=== PATIENT | male | born 1955 | race Caucasian/White ===

== ENCOUNTER 2018-05-18 13:38 | Outpatient (CLI) | payer OTHER ==
--- NOTE | 2018-05-18 16:02 | MRI ---
MRI RIGHT SHOULDER WITHOUT CONTRAST 05/18/18 HISTORY: M75.101 - rotator cuff syndrome, right shoulder. COMPARISON: BICEPS TENDON: Intact. LABRUM: Mild free edge volume loss of the posterior labrum. CARTILAGE: No focal full thickness cartilage defect. ROTATOR CUFF: There is moderate bursal surface fraying of the supraspinatus tendon. No full thickness perforation. BONES: There is mild lateral downsloping of the acromion with a thickened keel osteophyte of the coracoacrom ial ligament narrowing subacromial space. Subacromial space narrowed to approximately 4 mm. SOFT TISSUES: Normal subcoracoid fat. No significant edema or rotator interval. MUSCLES: Muscle signal and bulk is normal. IMPRESSION: Lateral downsloping of the acromion with thickened coracoacromial ligament causing bursal surface fr aying of the supraspinatus tendon with mild subacromial subdeltoid bursal effusion. No full thickness perforation. POS: [facility]
== END 2018-05-18 13:39 | disposition home or self-care (01) ==
LOC: MRI 13:38
PROVIDERS: ATTEND Emergency Medicine Sports Medicine
DX: M75.101 Unspecified rotator cuff tear or rupture of right shoulder, not specified as traumatic (principal); M25.411 Effusion, right shoulder

== ENCOUNTER 2020-04-10 06:46 | Inpatient (IN) | payer OTHER ==
[2020-04-10] MEDS ORDERED: Midazolam HCl 5 mg/ml Vial ONE (06:52)
[2020-04-10 07:13] LABS: PTT 38.2 sec (22.9-36.1)
[2020-04-10 07:20] LABS: Prothrombin Time 13.5 sec (12.0-14.7)
[2020-04-10 07:22] LABS: #Lymphocytes 0.4 thou/uL (1.20-3.40); #Monocytes 0.7 thou/uL (0.11-0.59); #Neutrophils 7.8 thou/uL (1.40-6.50); %Basophils 0.1 % (0.0-1.0); %Eosinophils 0.1 % (0.0-10.0); %Lymphocytes 4.2 % (21.0-51.0); %Monocytes 7.7 % (0.0-10.0); %Neutrophils 87.9 % (42.0-75.0); ALT (SGPT) 49 U/L (8-55); AST (SGOT) 46 U/L (5-34); Alkaline Phosphatase 94 U/L (40-110); Anion Gap 17 mmol/L (10-20); BUN (Urea Nitrogen) 6 mg/dL (8.4-25.7); Bilirubin, Total 0.5 mg/dL (0.2-1.2); CK (CPK) 81 U/L (30-200); Calc. Creatinine Clearance 0 mL/min (70-130); Calcium 8.7 mg/dL (7.8-10.44); Carbon Dioxide 19 mmol/L (23-31); Chloride 94 mmol/L (98-107); Estimated GFR-MDRD Greater than 90; Globulin 2.6 g/dL (2.4-3.5); Glucose 159 mg/dL (80-115); Hemoglobin 12.8 g/dL (14.0-18.0); Mean Corpuscular HGB CONC 35.7 g/dL (32.0-36.0); Mean Corpuscular Hemoglobin 35.5 pg (27.0-31.0); Mean Corpuscular Volume 99.4 fL (78.0-98.0); Platelet Count 107 thou/uL (130-400); Potassium 3.8 mmol/L (3.5-5.1); Protein, Total 6.6 g/dL (5.8-8.1); RBC Distribution Width 11.2 % (11.5-14.5); Red Blood Cell (RBC) Count 3.61 mill/uL (4.70-6.10); Sodium 126 mmol/L (136-145); White Blood Cell (WBC) Count 8.9 thou/uL (4.8-10.8)
[2020-04-10 07:24] LABS: Platelet Morphology Comment Appears Decreased
[2020-04-10] MEDS ORDERED: Lorazepam 2 MG/ML VIAL ONE (07:30)
[2020-04-10] MEDS ORDERED: Propofol 1,000 MG/100 ML VIAL IV ONE ×2 (07:30→10:42)
[2020-04-10 07:34] LABS: Actual Bicarbonate (HCO3a) 18.7 mEq/L (22-28); Analyzer IN Cardio ER; Base Excess (BEa) -4.8 mEq/L (-2.0 to +3.0); CO2 Tension 30.1 mmHg (35.0-45.0); Calcium, Ionized (arterial) 1.11 mmol/L (1.12-1.30); Carboxyhemoglobin (COHb) 0.3 gm% (0.0-3.0); Hemoglobin (Hb) 12.9 g/dL (14.0-18.0); O2 Tension (PaO2), arterial 117.6 mmHg (> 80.0); Potassium - ABG Lab 3.55 mmol/L (3.70-5.30); pH, Arterial 7.41 (7.35-7.45)
[2020-04-10 07:34] LABS: Alcohol Less than 10 mg/dL (Less than 10); Salicylate Less than 8.0 mg/dL (15.0-30.0)
[2020-04-10 07:35] LABS: ALV-art Gradient 129.975 (0-20)
--- NOTE | 2020-04-10 07:43 | RAD ---
EXAM: Single view of the chest HISTORY: Altered mental status COMPARISON: 08/28/2017 FINDINGS: Single view of the chest shows a normal sized cardiomediastinal silhouette. An NG tube is seen with its tip in the stomach. There is no evidence of consolidation, mass, or pleural effusion. The bones are unremarkable. IMPRESSION: No evidence of acute cardiopulmonary disease
--- NOTE | 2020-04-10 07:47 | CT ---
CT OF THE BRAIN WITHOUT CONTRAST: INDICATION: Level I stroke last evening at 0400 hours now unresponsive with snoring, respirations, and fever. COMPARISON: Noncontrast CT of the brain dated 08/29/2017 from [facility]. FINDINGS: There is generalized cerebral and cerebellar atrophy. There is mild chronic small-vessel white matte r ischemic change. No definite acute infarct, hemorrhage, or hydrocephalus is present. There are va scular calcifications involving the major intracranial arteries. There is mucosal thickening in the ethmoid air cells. The patient is intubated. The skull is intact. IMPRESSION: 1. No acute intracranial abnormality. 2. Stable generalized cerebral atrophy. 3. Findings called to Dr. Walker at 7:04 a.m. on 04/08/2020. CODE CR POS: [facility]
[2020-04-10 07:55] LABS: Bilirubin Negative (Negative); Blood, Urine Negative (Negative); Clarity Clear (Clear); Glucose, Urine (Dipstick) 100 mg/dL (Negative); Leukocyte Negative Leu/uL (Negative); Nitrite Negative (Negative); Protein, Urine (Dipstick) 10 mg/dL (Neg-Trace); Urobilinogen Normal mg/dL (Less than 2)
[2020-04-10] MEDS ORDERED: Fentanyl 100 MCG/2 ML VIAL ONE (07:55)
[2020-04-10 08:09] LABS: Amphetamine Not Detected (NotDetected); Barbiturates Screen Not Detected (NotDetected); Benzodiazepine Screen Not Detected (NotDetected); Cocaine Metabolite Screen Not Detected (NotDetected); Medtox Control Line Valid? VALID (VALID); Medtox Reader # READER 4; Methadone Not Detected (NotDetected); Methamphetamine Not Detected (NotDetected); Opiate Screen Not Detected (NotDetected); Oxycodone Screen Not Detected (NotDetected); Phencyclidine (PCP) Not Detected (NotDetected); THC/Cannabinoid Screen Not Detected (NotDetected); Tricyclic Screen Not Detected (NotDetected)
[2020-04-10] MEDS ORDERED: fentaNYL Citrate/PF 2,000 MCG in Sodium Chloride 0.9% 60 ML IV SCH (08:10)
[2020-04-10] MEDS ORDERED: Propofol 1,000 MG/100 ML VIAL IV PRN (08:25)
[2020-04-10] MEDS ORDERED: Thiamine HCl 200 MG/2 ML VIAL SLOW IVP SCH (08:30)
[2020-04-10] MEDS ORDERED: cefTRIAXone\\ROCEPHIN 2 GM in Sodium Chloride 0.9% 100 ML IVPB SCH (08:30)
--- NOTE | 2020-04-10 08:57 | CT ---
CTA OF THE HEAD WITH IV CONTRAST AND 3D REFORMATTED IMAGING CTA OF THE NECK WITH IV CONTRAST AND 3D REFORMATTED IMAGING: INDICATION: History of level I stroke with unresponsiveness with snoring respirations and fever. COMPARISON: Noncontrast CT of the brain dated 04/10/2020 at 6:55 a.m. FINDINGS: CTA OF THE NECK: Lung apices are clear. The patient is intubated. A mild amount of fluid is seen within the lower hy popharynx. The submandibular and parotid glands appear within normal limits. Thyroid gland is hillary l appearing. No enlarged lymph nodes are evident. There is scattered degenerative and osteoarthritic change. No definite acute osseous abnormality is evident. There is partial ankylosis of the left C2-C3 facet complex. No hemodynamically significant stenosis is seen involving the visualized aspects of the common caroti d arteries. The internal carotid arteries are patent. There are vascular calcifications involving t he carotid bulbs bilaterally. The vertebral arteries are patent throughout their visualized cervical course. CTA OF THE HEAD: There is a calcified atherosclerotic plaque involving the proximal aspect of the intracranial right v ertebral artery inducing hemodynamically significant stenosis. The left intracranial vertebral arter y is widely patent. The basilar and bandage maker are widely patent. Posterior communicating arteries are wi janey patent. The right internal carotid artery was widely patent. The right MCA and right CHANO are p atent. The anterior communicating artery is patent. The left ICA, left MCA, and left CHANO are widely patent. No area of abnormal enhancement is grossly evident. IMPRESSION: 1. No acute hemodynamically significant stenosis is seen involving the large vessels of the intracra nial artery. There is a calcified atherosclerotic plaque inducing high-grade stenosis of the proxima l aspect of the right intracranial vertebral artery that is likely chronic. 2. No hemodynamically significant stenosis is seen involving the great vessels of the neck. POS: [facility]
[2020-04-10] MEDS ORDERED: cefTRIAXone\\ROCEPHIN 2 GM VIAL ONE (08:58)
--- NOTE | 2020-04-10 09:22 | RAD ---
EXAM: Single view of the lumbar spine HISTORY: Performing a lumbar puncture. Evaluate for hardware. COMPARISON: None FINDINGS: Mild degenerative changes are seen in the lumbar spine. These degenerative changes are more prominent inferiorly. No hardware is seen in the lumbar spine. There is moderate left hydronephrosis. An NG tube is seen in the stomach. IMPRESSION: Degenerative changes of the lumbar spine without hardware present.
[2020-04-10] MEDS ORDERED: Acetaminophen 325 MG TAB PO PRN (09:24)
[2020-04-10] MEDS ORDERED: Bisacodyl 10 MG SUPP PR PRN (09:24)
[2020-04-10] MEDS ORDERED: Senokot S 8.6-50 MG TAB PO PRN (09:24)
[2020-04-10] MEDS ORDERED: Acetaminophen 650 MG Suppository PR PRN (09:24)
[2020-04-10] MEDS ORDERED: Dicyclomine 10 MG CAP PO PRN (09:26)
[2020-04-10] MEDS ORDERED: Iopamidol-370 76% 500 ML 1 ML ONE (09:27)
[2020-04-10 10:39] LABS: Troponin I 0.054 ng/mL (< 0.028)
[2020-04-10] MEDS ORDERED: Propofol BOLUS 1,000 MG/100 ML VIAL IV PRN (10:41)
[2020-04-10] MEDS ORDERED: Fentanyl BOLUS 250 ML IVPB PRN (10:41)
[2020-04-10] MEDS ORDERED: Morphine 2 MG/ML SYRINGE SLOW IVP PRN (10:41)
[2020-04-10] MEDS ORDERED: DISCONTINUE PREVIOUS NARCOTIC PAIN MEDICATIONS AND BENZODIAZEPINES FS SCH (10:41)
[2020-04-10] MEDS ORDERED: Lorazepam 2 MG/ML VIAL SLOW IVP PRN (10:41)
[2020-04-10] MEDS ORDERED: PROPOFOL 0 ML ONE (10:42)
[2020-04-10] MEDS ORDERED: hydrALAZINE 20 MG/ML VIAL SLOW IVP PRN (13:16)
[2020-04-10 13:44] LABS: Troponin I 0.055 ng/mL (< 0.028)
--- NOTE | 2020-04-10 13:49 | CON ---
NEUROLOGY CONSULTATION DATE OF CONSULTATION: 04/10/2020 HISTORY OF PRESENT ILLNESS: Mr. Vanessa Bradley is a 64-year-old male with history significant for hypertension, hypercholesterolemia, irritable bowel syndrome, brought by the EMS this morning because of seizures. The patient is unable to provide the history. The history is taken from the review of the medical records. Around 4 a.m., the patient went to the bathroom, and around 5:30 p.m. , the found him unresponsive on the floor, there was a concern about seizure activity, but nobody has witnessed the seizure. did notice generalized shaking. The EMS arrived and he was still unresponsive, so they intubated him to protect his airway and brought him to the hospital for further management. There is no family history of seizures. REVIEW OF SYSTEMS: Unobtainable since the patient is intubated and sedated. PAST MEDICAL HISTORY: Hypercholesterolemia, hypertension. SOCIAL HISTORY: . Lives with his . ALLERGIES: NO KNOWN DRUG ALLERGIES. FAMILY HISTORY: NOt significant. CURRENT MEDICATIONS: None. PHYSICAL EXAMINATION: VITAL SIGNS: Blood pressure 120/60, pulse 80 HEENT: Normocephalic, atraumatic. GENERAL: Intubated and sedated male, in no acute distress. CVS: Regular rate and rhythm. CHEST: Clear. ABDOMEN: Soft. NEUROLOGIC: Mental status; the patient is sedated and intubated. Does not follow commands. Does not maintain eye contact. Cranial nerves; pupils 4 mm, round and reactive to light. Face symmetric. Tongue midline. Gag positive. Corneals positive. Motor; muscle tone and bulk are normal. No spontaneous movements of all 4 extremities seen. Sensory; minimal withdrawal of all 4 extremities to nailbed pressure. Reflexes; trace bilaterally. Babinski equivocal bilaterally. Cerebellar; did not cooperate with the testing because of the sedation. Gait deferred. MEDICATIONS: Diprivan, ceftriaxone, fentanyl, lorazepam, and midazolam. DIAGNOSTIC STUDIES: Data reviewed. I reviewed the CT scan of the brain, which was negative for acute intracranial process, stable generalized cerebral atrophy. I also reviewed the CT angiogram of the head and neck, which did not reveal any acute hemodynamically significant stenosis. ASSESSMENT AND PLAN: Mr. Vanessa Bradley was consulted because of altered mental status with a concern about seizure activity, but no witnessed seizure was seen according to the records. Recommend MRI of the brain to rule out an acute intracranial process. Recommend EEG to rule out underlying seizure activity. The patient is a COVID rule out, so we will hold off the testing until the screening is complete. Neuro checks every 2 hours. Consider loading with Keppra 2 g IV and starting on 500 mg IV q.12 until the acute issues are resolved. Continue medical management per Primary Team. Observe seizure precautions. We will continue to follow. Thank you for the consult. Job ID: [id number] MTDD
--- NOTE | 2020-04-10 13:53 | HP ---
CHIEF COMPLAINT: Altered mentation. HISTORY OF PRESENT ILLNESS: A 64-year-old male with a history of alcohol abuse, irritable bowel syndrome, hyperlipidemia, hypertension, presented with questionable seizure episode. At 4:00 a.m., he got up to use the restroom. At 5:30 a.m., found him on the floor unresponsive. However, noticed that he had some generalized shakiness in his extremities briefly. EMS called. At that time, his sats were good. Because of his altered mentation, he was intubated at site. His reported that he was not feeling good yesterday, fever and chills and he has small rash on his left leg. In the ER, lumbar puncture attempted, but unsuccessful. Initial screening labs including UDS, urinalysis, blood alcohol level are negative. Initial troponin negative. No elevated white count. Chest x-ray without any infiltrate. However, he had a temp of 100.4. He is being screened for COVID. He is intubated. is not nearby to get any further history. The patient does have a history of alcohol abuse, hypertension, as well as syncope in the past. He is not on any blood thinners. REVIEW OF SYSTEMS: Not obtainable. ALLERGIES: HE HAS NO KNOWN DRUG ALLERGY. PAST MEDICAL HISTORY: Hypertension, alcohol abuse, history of syncope in the past. MEDICATIONS: 1. Loratadine 10 mg at bedtime. 2. Lipitor 20 mg at bedtime. 3. Aspirin 81 mg daily. 4. Amlodipine-benazepril 5-10 mg daily. 5. Naprosyn 220 mg t.i.d. p.r.n. 6. Toprol-XL 25 mg daily. 7. Bentyl 10 mg q.i.d. p.r.n. SOCIAL HISTORY: Not obtainable. FAMILY HISTORY: Not obtainable. PHYSICAL EXAMINATION: VITAL SIGNS: His temperature is 101.4, pulse 85, blood pressure 114/65. He is intubated and sedated. GENERAL: He appears nontoxic. HEENT: Pupils equal, round, reactive to light. Anicteric. Normocephalic, atraumatic. CARDIOVASCULAR: Regular rate and rhythm without murmurs, rubs, or gallops. LUNGS: Anterior auscultation did not reveal any adventitious lung sounds. ABDOMEN: Bowel sounds positive. EXTREMITIES: Again, there is some mild petechial rash on the left leg. No rashes or ecchymosis noted in the torso or the upper extremities. NEUROLOGIC: I did not appreciate any significant focal deficits. LABORATORY DATA: UDS negative. WBC 8.9. Rest of the CBC appears in the normal range. His sodium 126, creatinine is 0.83, bicarb is 19. Troponin 0.01 and 0.05. PTT is 38.2. IMPRESSION AND PLAN: This is a 64-year-old male found to be unresponsive at home. Initial head CT and CT angiogram are negative. Does not appear to have any seizure or stroke. 1. Acute respiratory failure, requiring intubation. 2. Metabolic encephalopathy. 3. COVID pneumonia,to be ruled out given his fever. 4. Abnormal troponin. 5. He had a CT angiogram that did not show significant stenosis. His lumbar spine x-ray showed degenerative joint disease. We will cycle the troponins. Decadron, Empiric ceftriaxone, Zithromax until COVID ruled out. P.r.n. hydralazine for blood pressure maintenance. We will also get D-dimer, ferritin as well as CRP levels. Requested neurology consult given his metabolic encephalopathy. We will also add Ativan p.r.n. for seizure precautions. At this point, low threshold for seizure. Lovenox for DVT prophylaxis. Job ID: [id number] MTDD
[2020-04-10 13:59] VITALS: BMI 25.6
[2020-04-10] MEDS: Azithromycin 500 MG in Sodium Chloride 0.9% 250 ML 250 ML IVPB SCH (14:36)
[2020-04-10] MEDS: Sodium Chloride 0.9% 1,000 ML IV SCH (15:17)
--- NOTE | 2020-04-10 16:24 | CON ---
DATE OF CONSULTATION: HISTORY OF PRESENT ILLNESS: Vanessa Bradley is a 64-year-old gentleman. History is obtained talking to the , phone #[phone], states that this morning became encephalopathic, started having some shaking chills. Apparently, he was not seizing. She called Paramedics. It took them 45 minutes to get home. He did have some difficulty breathing. He was intubated and transferred to the [facility]. He has had a chest x-ray, which looks like no acute infiltrates. CT of brain shows no acute lesions. CT angio of neck shows normal vessels. Attempt to do a lumbar puncture by the ER physicians was unsuccessful, I am told. They felt he might have meningitis. The patient has longstanding history of alcohol abuse, 4 cans of beer a day along with a glass of wine daily. Yesterday, he only drank 2 beers and a glass of wine because he had fever and not feeling good. He is a nonsmoker at this stage, though he did smoke 20 years ago. PAST MEDICAL HISTORY: Hypertension, high cholesterol, and alcohol abuse. PREVIOUS SURGERIES: L4-L5 laminectomy, tonsils, knee. HOME MEDICATIONS: 1. Toprol-XL 25. 2. Claritin 10. 3. Bentyl 10. 4. Amlodipine/benazepril 5/10. 5. Aleve. 6. Naprosyn. ALLERGIES: NONE. REVIEW OF SYSTEMS: Otherwise, unobtainable. PHYSICAL EXAMINATION: VITAL SIGNS: His blood pressure is 120/60, pulse 85, saturations respiratory rate 13, he is on low-dose Diprivan. CHEST: No wheezing. No crackles. CARDIAC: Normal S1, S2. No gallops. ABDOMEN: No masses. LABORATORY DATA: White count 8000, H and H unremarkable, platelet count is low at 107. PO2 of 117, pCO2 . Sodium 126. ASSESSMENT AND PLAN: 1. Metabolic encephalopathy, etiology unclear. 2. History of alcohol abuse. 3. Hyponatremia. 4. Hypertension. 5. High cholesterol. 6. Former smoker. 7. Thrombocytopenia. There is concern about meningitis. He probably needs to have an LP by Radiology under CT guidance. Continue vent support. Agree with thiamine and banana bag. Ordered appropriate lab. Dr. Harper has seen him in the past, we will notify him tomorrow morning. 45 minutes of critical care time. Job ID: [id number]
[2020-04-10 20:27] LABS: CKMB 2.5 ng/mL (0-6.6)
[2020-04-10] MEDS: fentaNYL Citrate/PF 2,000 MCG in Sodium Chloride 0.9% 60 ML IV SCH (21:58)
[2020-04-11] MEDS: Sodium Chloride 0.9% 1,000 ML IV SCH ×2 (01:25→16:22)
[2020-04-11] MEDS: Atorvastatin Calcium 20 MG TAB PO SCH ×2 (03:07→21:11)
[2020-04-11] MEDS: Loratadine 10 MG TAB PO SCH ×2 (03:08→21:12)
[2020-04-11] MEDS: Propofol 1,000 MG/100 ML VIAL IV PRN ×2 (03:16→10:02)
[2020-04-11 03:49] LABS: #Lymphocytes 0.8 thou/uL (1.20-3.40); #Monocytes 0.9 thou/uL (0.11-0.59); #Neutrophils 5.8 thou/uL (1.40-6.50); %Basophils 0.1 % (0.0-1.0); %Eosinophils 0.1 % (0.0-10.0); %Lymphocytes 10.4 % (21.0-51.0); %Neutrophils 77.3 % (42.0-75.0); Hemoglobin 12.4 g/dL (14.0-18.0); Mean Corpuscular HGB CONC 35.3 g/dL (32.0-36.0); Mean Corpuscular Hemoglobin 35.7 pg (27.0-31.0); Mean Platelet Volume 7.5 fL (7.4-10.4); Platelet Count 90 thou/uL (130-400); RBC Distribution Width 11.4 % (11.5-14.5); Red Blood Cell (RBC) Count 3.48 mill/uL (4.70-6.10); White Blood Cell (WBC) Count 7.5 thou/uL (4.8-10.8)
[2020-04-11 07:34] LABS: Base Excess (BEa) -4.2 mEq/L (-2.0 to +3.0); CO2 Tension 50.8 mmHg (35.0-45.0); Calcium, Ionized (arterial) 1.14 mmol/L (1.12-1.30); Carboxyhemoglobin (COHb) 0.2 gm% (0.0-3.0); Hemoglobin (Hb) 12.5 g/dL (14.0-18.0); O2 Tension (PaO2), arterial 143.2 mmHg (> 80.0); Potassium - ABG Lab 3.53 mmol/L (3.70-5.30); pH, Arterial 7.27 (7.35-7.45)
[2020-04-11 07:35] LABS: Puncture Site RRA
--- NOTE | 2020-04-11 07:54 | RAD ---
EXAM: Single view of the chest HISTORY: Ventilated patient with respiratory failure COMPARISON: 04/10/2020 FINDINGS: Single view of the chest shows a normal sized cardiomediastinal silhouette. The lines and tubes are unchanged in position. Scarring versus atelectasis is seen in the left lung base. There is no evidence of consolidation, mass, or pleural effusion. Degenerative changes are seen in the spin e. IMPRESSION: Stable exam
--- NOTE | 2020-04-11 08:12 | PRG ---
DATE OF SERVICE: 04/11/2020 35 minutes of critical care time. SUBJECTIVE: This patient remains intubated on mechanical ventilation in the CCU. We are pending an LP hopefully later today. OBJECTIVE: VITAL SIGNS: His temperature is 99.1, pulse 67, blood pressure 98/56, and O2 saturation 100%. GENERAL: He is currently on a propofol and fentanyl drip. NEUROLOGIC: I can get him to respond to pain or stimulation; although the nurse tells me she had reported that the patient was squeezing hand to command last night. The patient is right in the ventilator on the set rate. HEENT: Pupils are 3 mm, sluggishly reactive. Sclerae anicteric. Oropharynx clear. NECK: No adenopathy or JVD. LUNGS: Clear to auscultation without wheezing. CARDIAC: Rhythm regular without audible murmur. ABDOMEN: Soft and nontender to palpation. EXTREMITIES: No clubbing, cyanosis, or edema. LABORATORY DATA: There is no chemistry from this morning. White blood cell count 7.5, hematocrit 35.1, and platelet count 90. A pH was 7.27, pCO2 of 50, pO2 of 130. C-reactive protein is 15. Chest x-ray shows no significant findings. ET tube is in good position. ASSESSMENT: 1. Acute respiratory failure, requiring mechanical ventilation. 2. Sepsis syndrome. 3. Metabolic encephalopathy. 4. Rule out meningitis. 5. Rule out COVID-19 infection. PLAN: 1. His Lovenox will be held in anticipation of an LP. 2. Continue broad-spectrum IV antibiotics. 3. I have adjusted the patient's mechanical ventilation rate. 4. Add Protonix for GI prophylaxis. Job ID: [id number]
[2020-04-11] MEDS ORDERED: Enoxaparin Sodium 40 MG/0.4 ML SYRINGE SC SCH (09:00)
[2020-04-11] MEDS ORDERED: Aspirin 81 mg Enteric Coated Tablet PO SCH (09:00)
[2020-04-11] MEDS: Aspirin 81 mg Enteric Coated Tablet PO SCH (09:24)
[2020-04-11] MEDS: cefTRIAXone\\ROCEPHIN 1 GM in Sodium Chloride 0.9% 100 ML IVPB SCH (09:25)
[2020-04-11] MEDS: Pantoprazole 40 MG VIAL IVP SCH (09:26)
[2020-04-11 12:46] LABS: SARS-CoV-2 MS2 Positive; SARS-CoV-2 N Gene Negative; SARS-CoV-2 S Gene Negative; SARS-CoV-2 orf1ab Negative
[2020-04-11 13:34] LABS: Albumin 3.3 g/dL (3.4-4.8)
[2020-04-11 13:36] LABS: Calcium 7.9 mg/dL (7.8-10.44); Chloride 99 mmol/L (98-107); Potassium 3.6 mmol/L (3.5-5.1); Sodium 130 mmol/L (136-145)
[2020-04-11 13:37] LABS: Globulin 2.3 g/dL (2.4-3.5); Glucose 82 mg/dL (80-115); Protein, Total 5.6 g/dL (5.8-8.1)
--- NOTE | 2020-04-11 13:37 | PDOC.HOSPP ---
- Subjective Encounter Date: 04/11/20 Encounter Time: 11:40 - Objective Vital Signs & Weight: Vital Signs (12 hours) Temp Pulse Resp BP Pulse Ox 04/11/20 12:53 50 L 103/62 04/11/20 12:00 97.6 F 15 04/11/20 10:39 54 L 99/61 04/11/20 10:00 15 04/11/20 09:00 97.6 F 04/11/20 08:00 10 L 100 04/11/20 07:04 66 98/56 L 04/11/20 06:00 10 L 04/11/20 05:00 99.1 F 04/11/20 04:00 10 L 04/11/20 02:12 78 105/53 L 04/11/20 02:00 10 L Weight Weight 178 lb 9.191 oz Most Recent Monitor Data Heart Rate from ECG 51 NIBP 97/58 NIBP BP-Mean 71 Respiration from ECG 15 SpO2 100 I&O: 04/10/20 04/11/20 04/12/20 06:59 06:59 06:59 Intake Total 2529 Output Total 910 165 Balance 1619 -165 Result Diagrams: 04/11/20 03:31 04/10/20 06:57 Hospitalist ROS - Medication Medications: Active Medications Generic Name Dose Route Start Last Admin Trade Name Whit PRN Reason Stop Dose Admin Aspirin 81 mg 04/11/20 09:00 04/11/20 09:24 Ecotrin PO 81 mg DAILY [place] Administration Atorvastatin Calcium 20 mg 04/10/20 21:00 04/11/20 03:07 Lipitor PO Not Given HS [place] Fentanyl Citrate 2,000 mcg/ 100 mls @ 0 mls/hr 04/10/20 10:41 04/10/20 21:58 Sodium Chloride IV 05/10/20 10:41 100 mls INF [place] Administration Protocol Per Protocol Azithromycin 500 mg/ Sodium 250 mls @ 250 mls/hr 04/10/20 14:00 04/10/20 14: 36 Chloride IVPB 250 mls Q24HR [place] Administration Ceftriaxone Sodium 1 gm/ 100 mls @ 200 mls/hr 04/11/20 09:00 04/11/20 09:25 Sodium Chloride IVPB 100 mls Q24HR [place] Administration Sodium Chloride 1,000 mls @ 100 mls/hr 04/10/20 15:15 04/11/20 01:25 Normal Saline 0.9% IV 1,000 mls .Q10H [place] Administration Thiamine HCl 100 mg/ Sodium 51 mls @ 100 mls/hr 04/11/20 09:00 04/11/20 09:42 Chloride IVPB 04/14/20 21:31 51 mls Q12HR [place] Administration Loratadine 10 mg 04/10/20 21:00 04/11/20 03:08 Claritin PO Not Given HS [place] Metoprolol Succinate 25 mg 04/11/20 09:00 04/11/20 12:44 Toprol Xl PO Not Given DAILY [place] Pantoprazole Sodium 40 mg 04/11/20 09:00 04/11/20 09:26 Protonix IVP 40 mg DAILY [place] Administration Propofol 1,000 mg 04/10/20 10:41 04/11/20 10:02 Diprivan IV 05/10/20 10:41 1,000 mg INF PRN Administration TO ACHIEVE GOAL RASS Protocol Sodium Chloride 10 ml 04/10/20 09:00 04/11/20 09:27 Flush - Normal Saline IVF 10 ml Q12HR [place] Administration
[2020-04-11 13:38] LABS: Anion Gap 14 mmol/L (10-20); Carbon Dioxide 21 mmol/L (23-31)
[2020-04-11 13:39] LABS: Bilirubin, Total 0.3 mg/dL (0.2-1.2)
[2020-04-11 13:40] LABS: Alkaline Phosphatase 89 U/L (40-110); Calc. Creatinine Clearance 138 mL/min (70-130); Estimated GFR-MDRD Greater than 90
[2020-04-11 13:41] LABS: BUN (Urea Nitrogen) 5 mg/dL (8.4-25.7)
--- NOTE | 2020-04-11 13:41 | PDOC.EVN ---
Event Note - Event Note Event Note: pt intubated, plan for LP and. covid result pending. Acute hypoxic resp failure requiring intubation -sedated metabolic encephalopathy sepsis has to be r/o ---bl cx neg, and on CTX Abnromal troponin- type II mismatch macrocytic, chronic anemia Glucosuria COVID - pending. high ferritin, elevated d-dimer Transaminitis high CRP Hyponatremia
[2020-04-11 13:42] LABS: AST (SGOT) 39 U/L (5-34)
[2020-04-11 13:43] LABS: ALT (SGPT) 35 U/L (8-55)
[2020-04-11] MEDS: fentaNYL Citrate/PF 2,000 MCG in Sodium Chloride 0.9% 60 ML IV SCH (15:30)
--- NOTE | 2020-04-11 15:54 | RAD ---
Fluoroscopic guided lumbar puncture INDICATION: Concern for meningitis TECHNIQUE: Informed consent was obtained from the patient's via telephone. Patient was escorted to the fluoroscopy suite by the respiratory therapist and CCU nurse. The patient was placed prone on the fluoroscopic table with the endotracheal tube appropriately secured. Patient remained on appro priate cardiopulmonary monitoring. Digital Advisor images were performed. The posterior lower lumbar spine was prepped and draped in the usual sterile fashion. Site overlying the left aspect of the L3-4 inter laminar space was marked. Site was anesthetized utilizing buffered 1% lidocaine. 3 separate attempts were performed to guide the 20-gauge spinal needle into the intrathecal space that proved un successful. Attention was then placed to the left L4-5 interlaminar space. The site was anesthetized utilizing buffered 1% lidocaine. Under fluoroscopic guidance, the 20-gauge spinal needle was guided down into the thecal sac. There is spontaneous return of normal appearing CSF fluid. Following this, 15 cc of normal appearing CSF fluid were collected in 4 separate aliquots (5 cc tube 1, 4 cc tube 2, 3 cc tube3 and 3 cc tube 4). The inner stylette was replaced within spinal needle and the spinal needle was removed. Pressure was held at the sampling site until hemostasis was obtain ed. The site was then cleansed and bandage. The patient was then placed supine on the patient's bed and transfer back to CCU. Total fluoroscopic time was 0.9 minutes. Total exposure was 304.7 mcg/sq cm . IMPRESSION: Successful fluoroscopic guided lumbar puncture with removal of 15 cc of normal appearing CSF fluid.
[2020-04-11 16:11] LABS: CSF Source CSF
[2020-04-11 16:12] LABS: CSF Source CSF; Clarity Clear (Clear); Tube # 1; Tube # 4
[2020-04-11 16:20] LABS: Color Of CSF Supernatant COLORLESS (Colorless); Tube # 2; Unspun CSF Color COLORLESS (Colorless)
[2020-04-11] MEDS: Azithromycin 500 MG in Sodium Chloride 0.9% 250 ML 250 ML IVPB SCH (16:21)
[2020-04-11 16:26] LABS: CSF RBC Count - Manual 3 /cu.mm (None Seen); CSF WBC/NonHematics Count-Man 0 /cu.mm (0-5)
[2020-04-11 16:33] LABS: CSF, Glucose 63 mg/dl (40-70); CSF, Protein 64 mg/dL (15-40)
[2020-04-11] MEDS ORDERED: Diazepam 5 MG TAB PO PRN (19:32)
[2020-04-11] MEDS ORDERED: Diazepam 5 MG TAB PO SCH (19:45)
[2020-04-11] MEDS ORDERED: Lorazepam 2 MG/ML VIAL SLOW IVP PRN (20:02)
[2020-04-12] MEDS: Sodium Chloride 0.9% 1,000 ML IV SCH ×4 (01:43→17:41)
[2020-04-12] MEDS ORDERED: Diazepam 5 MG TAB PO PRN (04:00)
[2020-04-12 04:15] LABS: #Lymphocytes 0.4 thou/uL (1.20-3.40); #Monocytes 0.7 thou/uL (0.11-0.59); #Neutrophils 5.1 thou/uL (1.40-6.50); %Eosinophils 0.1 % (0.0-10.0); %Lymphocytes 6.8 % (21.0-51.0); %Monocytes 11.5 % (0.0-10.0); %Neutrophils 81.6 % (42.0-75.0); Hemoglobin 11.7 g/dL (14.0-18.0); Mean Corpuscular HGB CONC 35.1 g/dL (32.0-36.0); Mean Corpuscular Hemoglobin 34.7 pg (27.0-31.0); Mean Corpuscular Volume 98.8 fL (78.0-98.0); Mean Platelet Volume 7.7 fL (7.4-10.4); Platelet Count 85 thou/uL (130-400); RBC Distribution Width 11.2 % (11.5-14.5); Red Blood Cell (RBC) Count 3.37 mill/uL (4.70-6.10); White Blood Cell (WBC) Count 6.2 thou/uL (4.8-10.8)
[2020-04-12 04:38] LABS: Anion Gap 13 mmol/L (10-20); BUN (Urea Nitrogen) 4 mg/dL (8.4-25.7); Calc. Creatinine Clearance 147 mL/min (70-130); Calcium 7.7 mg/dL (7.8-10.44); Carbon Dioxide 22 mmol/L (23-31); Chloride 99 mmol/L (98-107); Estimated GFR-MDRD Greater than 90; Glucose 88 mg/dL (80-115); Potassium 3.3 mmol/L (3.5-5.1); Sodium 131 mmol/L (136-145)
--- NOTE | 2020-04-12 08:32 | RAD ---
PORTABLE CHEST: DATE: 04/12/2020. PROVIDED CLINICAL HISTORY: Shortness of breath. FINDINGS: Comparison 04/11/2020. Enteric catheter and endotracheal tube are no longer visualized. Interval dev elopment of bilateral lower lung zone airspace disease. Heart and mediastinal silhouette appear stab le. There is no pleural fluid or pneumothorax apparent. IMPRESSION: Development of bilateral infrahilar airspace disease. Correlate for aspiration or pneumonia. POS: [facility]
--- NOTE | 2020-04-12 09:17 | PRG ---
DATE OF SERVICE: 04/12/2020 SUBJECTIVE: He was extubated yesterday afternoon, almost immediately he demonstrated symptoms of alcohol withdrawal. He was placed on Precedex drip, which has maintained control of his DTs fairly well. OBJECTIVE: VITAL SIGNS: His temperature is 98.1, T-max of 100.0, pulse ranging from 98 to 150, blood pressure 133/95, O2 saturation 96%. HEENT: Unremarkable. NECK: No adenopathy or JVD. LUNGS: Clear. CARDIAC: S1 and S2. Regular. ABDOMEN: Soft. EXTREMITIES: No edema. LABORATORY DATA: White count 6.2, hematocrit 33, and platelet count 85. Sodium 131, potassium 3.3, chloride 99, CO2 of 20, BUN 4, creatinine 0.6, glucose 88. ASSESSMENT: 1. Metabolic encephalopathy, which is improved. 2. Probable alcohol withdrawal. 3. Status post respiratory failure requiring mechanical ventilation. 4. Mild thrombocytopenia. PLAN: 1. He is currently undergoing EEG for further workup of possible seizures. We will continue him on low-dose Precedex drip and try to wean as tolerated. 2. He is on supplemental thiamine. 3. He is on a clear liquid diet. 4. Results of the LP were fairly benign. Cultures from that are pending. Job ID: [id number]
[2020-04-12] MEDS: Pantoprazole 40 MG VIAL IVP SCH (09:52)
[2020-04-12] MEDS: cefTRIAXone\\ROCEPHIN 1 GM in Sodium Chloride 0.9% 100 ML IVPB SCH (11:32)
--- NOTE | 2020-04-12 13:29 | PDOC.HOSPP ---
- Subjective Encounter Date: 04/12/20 Subjective: NEUROLOGY PROGRESS NOTE Patient extubated and undergoing EEG. Agitated but alert and following commands appropriately. - Objective Vital Signs & Weight: Vital Signs (12 hours) Temp Pulse Ox 04/12/20 08:00 97.7 F 93 L 04/12/20 02:00 98.1 F 04/12/20 01:41 92 L Weight Admit Weight 178 lb Weight 178 lb 9.191 oz Most Recent Monitor Data Heart Rate from ECG 97 NIBP 135/86 NIBP BP-Mean 102 Respiration from ECG 8 SpO2 97 I&O: 04/11/20 04/12/20 04/13/20 06:59 06:59 06:59 Intake Total 2529 2820.22 Output Total 910 1860 535 Balance 1619 960.22 -535 Result Diagrams: 04/12/20 03:43 04/12/20 03:43 Radiology Reviewed by me: Yes EKG Reviewed by me: Yes Hospitalist ROS - Review of Systems Constitutional: denies: fever, chills, sweats, weakness, malaise, other Eyes: denies: pain, vision change, conjunctivae inflammation, eyelid inflammation, redness, other ENT: denies: ear pain, ear discharge, nose pain, nose discharge, nose congestion , mouth pain, mouth swelling, throat pain, throat swelling, other Respiratory: denies: cough, dry, shortness of breath, hemoptysis, SOB with excertion, pleuritic pain, sputum, wheezing, other Cardiovascular: denies: chest pain, palpitations, orthopnea, paroxysmal noc. dyspnea, edema, light headedness, other Genitourinary: denies: dysuria, frequency, incontinence, hematuria, retention, other Skin: denies: rash, lesions, miya, bruising, other Neurological: reports: confusion. denies: weakness, numbness, incoordination, change in speech, seizures, other - Medication Medications: Active Medications Generic Name Dose Route Start Last Admin Trade Name Freq PRN Reason Stop Dose Admin Aspirin 81 mg 04/11/20 09:00 04/11/20 09:24 Ecotrin PO 81 mg DAILY [place] Administration Atorvastatin Calcium 20 mg 04/10/20 21:00 04/11/20 21:11 Lipitor PO Not Given HS [place] Azithromycin 500 mg/ Sodium 250 mls @ 250 mls/hr 04/10/20 14:00 04/11/20 16: 21 Chloride IVPB 250 mls Q24HR [place] Administration Ceftriaxone Sodium 1 gm/ 100 mls @ 200 mls/hr 04/11/20 09:00 04/12/20 11:32 Sodium Chloride IVPB 100 mls Q24HR [place] Administration Sodium Chloride 1,000 mls @ 100 mls/hr 04/10/20 15:15 04/12/20 09:51 Normal Saline 0.9% IV 1,000 mls .Q10H [place] Administration Thiamine HCl 100 mg/ Sodium 51 mls @ 100 mls/hr 04/11/20 09:00 04/12/20 09:51 Chloride IVPB 04/14/20 21:31 51 mls Q12HR [place] Administration Dexmedetomidine HCl 200 mcg/ 50 mls @ 0 mls/hr 04/11/20 20:15 04/12/20 05:28 Sodium Chloride IVPB 50 mls INF [place] Administration Protocol Titrate Loratadine 10 mg 04/10/20 21:00 04/11/20 21:12 Claritin PO Not Given HS [place] Lorazepam 2 mg 04/11/20 20:02 04/11/20 20:29 Ativan SLOW IVP 2 mg Q2H PRN Administration ANXIETY/WITHRDRAWAL SYMPTOMS Metoprolol Succinate 25 mg 04/11/20 09:00 04/11/20 12:44 Toprol Xl PO Not Given DAILY [place] Pantoprazole Sodium 40 mg 04/11/20 09:00 04/12/20 09:52 Protonix IVP 40 mg DAILY [place] Administration Sodium Chloride 10 ml 04/10/20 09:00 04/12/20 09:52 Flush - Normal Saline IVF 10 ml Q12HR [place] Administration - Exam General Appearance: awake alert (agitated and restless) Eye: PERRL, anicteric sclera ENT: normocephalic atraumatic Neck: supple Heart: RRR Respiratory: CTAB Gastrointestinal: soft Extremities: no cyanosis, no clubbing, no edema Skin: normal turgor, no lesions, no rashes Neurological: cranial nerve grossly intact, normal sensation to touch, no weakness, no focal deficits, no new deficit Musculoskeletal: normal tone, normal strength, no muscle wasting Psychiatric: normal affect, normal behavior, A&O x 3, oriented to person, oriented to place, oriented to time Hosp A/P (1) AMS (altered mental status) Code(s): R41.82 - ALTERED MENTAL STATUS, UNSPECIFIED Status: Acute (2) Alcohol intoxication Status: Acute (3) Hypertension Code(s): I10 - ESSENTIAL (PRIMARY) HYPERTENSION Status: Chronic - Plan 64 year old consulted for possible seizure like activity and altered mental status. Most likely alcohol withdrwal. EEG ongoing. Will follow up on reads. Continue neurochecks every 2 hours. Recommend MRI brain when stable. Observe seizure precautions. [place] protocol. Patient complained of ongoing dizzy spells since the last few years. Consider carotid dopplers and 2 D echo when stable. Continue medical management per primary team. Plan discussed with primary attending Dr. Treviño.
[2020-04-12] MEDS: Folic Acid 1 MG TAB PO SCH (14:29)
[2020-04-12] MEDS: Aspirin 81 mg Enteric Coated Tablet PO SCH (14:29)
[2020-04-12] MEDS: Multivitamin W/ Minerals 1 TAB PO SCH (14:29)
[2020-04-12] MEDS: Magnesium Oxide 400 MG TAB PO SCH (14:29)
--- NOTE | 2020-04-12 14:32 | EEG ---
DATE OF SERVICE: 04/12/2020 This EEG was performed using 24-channel [employer] video digital EEG machine with 24- disk electrode. This was an extended 2 hour 5 minutes of inpatient video EEG recording. Digital analysis of the EEG was done for spike and seizure detection which revealed no abnormalities BACKGROUND: The posterior background rhythm was not observed. Low-amplitude EEG with excessive beta activity intermixed with a background. HYPERVENTILATION: Not performed. PHOTIC STIMULATION: No significant response seen with photic stimulation. SLEEP: Drowsiness and sleep are not observed. EEG DIAGNOSES: 1. Intermittent irregular theta activity with superimposed beta. 2. Absence of posterior background rhythm. CLINICAL INTERPRETATION: This EEG is consistent with moderate generalized nonspecific cerebral dysfunction. No ictal or interictal epileptiform abnormalities seen during the recording. Job ID: [id number] [facility]
[2020-04-12] MEDS: Azithromycin 500 MG in Sodium Chloride 0.9% 250 ML 250 ML IVPB SCH (14:36)
--- NOTE | 2020-04-12 16:16 | PQF ---
URIAHARASELI Mcnally CARINETRAYPANKAJBONITA [id number] CLINICAL DOCUMENTATION IMPROVEMENT CLARIFICATION FORM: ICD-10 Updated PLEASE DO AN ADDENDUM TO THE PROGRESS NOTE WITH ANY DOCUMENTATION UPDATES OR ADDITIONS AND CARRY THROUGH TO DC SUMMARY. THANK YOU. DATE: 04/12/2020 ,04/13/2020 ATTN:DR. Estefania IQBAL Please exercise your independent, professional judgment in responding to the clarification form. Clinical indicators are provided on the bottom of this form for your review. Please check appropriate box(s): [ ] Associated Diagnosis: [place] TYPE I [ x] Associated Diagnosis: [place] TYPE II [ ] Insignificant lab value [ ] Other diagnosis [ ] Unable to determine In addition, please specify: Present on Admission (POA): [x ] Yes [ ] No [ ] Unable to determine For continuity of documentation, please document condition throughout progress notes and discharge summary. Thank You. CLINICAL INDICATORS - SIGNS / SYMPTOMS/ LABS are present in the medical record: 04/10 TROPONIN I 0.054 > 0.055 > 0.038 04/10 H&P (GURUSAMY) FOUND ON THE FLOOR BY UNRESPONSIVE, BECAUSE OF HIS AMS HE WAS INTUBATED AT SITE. INITIAL TROPONIN WAS NEGATIVE. NO ELEVATED WHITE COUNT. CHEST XRAY WITHOUT ANY INFILTRATE. HOWEVER, HE HAD A TEMP OF 100.4. IMPRESSION AND PLAN: 4). ABNORMAL TROPONIN 04/11 PN (GURUSAMY) ABNORMAL TROPONIN, TYPE II MISMATCH RISK: HX HYPERTENSION, HIGH CHOLESTEROL, ALCOHOL ABUSE, FORMER SMOKER ( H&P/GURUSAMY) 04/10 TREATMENT: SERIAL TROPONIN I (04/10) MECHANICAL VENTILATION (04/10-04/11) THANK YOU~ VERÓNICA (This form is maintained as a part of the permanent medical record) 2014 [employer] All Rights Reserved VIANEY [email or web address] [email or web address]
--- NOTE | 2020-04-12 16:41 | PDOC.HOSPP ---
- Subjective Encounter Date: 04/12/20 Encounter Time: 10:40 Subjective: pt extubated at 430 y'day, 2 hour EEG being done at bedside, pt on precedex, , likely active withdrawl. d/w RN. - Objective Vital Signs & Weight: Vital Signs (12 hours) Temp BP Pulse Ox 04/12/20 16:00 98.2 F 148/89 H 04/12/20 12:00 98 F 129/90 04/12/20 08:00 97.7 F 93 L Weight Admit Weight 178 lb Weight 178 lb 9.191 oz Most Recent Monitor Data Heart Rate from ECG 113 NIBP 148/89 NIBP BP-Mean 108 Respiration from ECG 12 SpO2 96 I&O: 04/11/20 04/12/20 04/13/20 06:59 06:59 06:59 Intake Total 2529 2820.22 Output Total 910 1860 1065 Balance 1619 960.22 -1065 Result Diagrams: 04/12/20 03:43 04/12/20 03:43 Hospitalist ROS - Medication Medications: Active Medications Generic Name Dose Route Start Last Admin Trade Name Freq PRN Reason Stop Dose Admin Aspirin 81 mg 04/11/20 09:00 04/12/20 14:29 Ecotrin PO 81 mg DAILY [place] Administration Atorvastatin Calcium 20 mg 04/10/20 21:00 04/11/20 21:11 Lipitor PO Not Given HS [place] Folic Acid 1 mg 04/12/20 09:00 04/12/20 14:29 Folvite PO 1 mg DAILY [place] Administration Azithromycin 500 mg/ Sodium 250 mls @ 250 mls/hr 04/10/20 14:00 04/12/20 14: 36 Chloride IVPB 250 mls Q24HR [place] Administration Ceftriaxone Sodium 1 gm/ 100 mls @ 200 mls/hr 04/11/20 09:00 04/12/20 11:32 Sodium Chloride IVPB 100 mls Q24HR [place] Administration Sodium Chloride 1,000 mls @ 100 mls/hr 04/10/20 15:15 04/12/20 09:51 Normal Saline 0.9% IV 1,000 mls .Q10H [place] Administration Thiamine HCl 100 mg/ Sodium 51 mls @ 100 mls/hr 04/11/20 09:00 04/12/20 09:51 Chloride IVPB 04/14/20 21:31 51 mls Q12HR [place] Administration Dexmedetomidine HCl 200 mcg/ 50 mls @ 0 mls/hr 04/11/20 20:15 04/12/20 05:28 Sodium Chloride IVPB 50 mls INF [place] Administration Protocol Titrate Iron/Minerals/Multivitamins 1 tab 04/12/20 09:00 04/12/20 14:29 Theragran M PO 1 tab DAILY [place] Administration Loratadine 10 mg 04/10/20 21:00 04/11/20 21:12 Claritin PO Not Given HS [place] Lorazepam 2 mg 04/11/20 20:02 04/11/20 20:29 Ativan SLOW IVP 2 mg Q2H PRN Administration ANXIETY/WITHRDRAWAL SYMPTOMS Magnesium Oxide 400 mg 04/12/20 09:00 04/12/20 14:29 Magnesium Oxide PO 400 mg DAILY [place] Administration Metoprolol Succinate 25 mg 04/11/20 09:00 04/12/20 14:30 Toprol Xl PO 25 mg DAILY [place] Administration Pantoprazole Sodium 40 mg 04/11/20 09:00 04/12/20 09:52 Protonix IVP 40 mg DAILY [place] Administration Sodium Chloride 10 ml 04/10/20 09:00 04/12/20 09:52 Flush - Normal Saline IVF 10 ml Q12HR [place] Administration - Exam General Appearance: ill appearing General - other findings: agitated -on precedex ENT: normocephalic atraumatic Neck: supple Heart: RRR Respiratory: CTAB, normal chest expansion Gastrointestinal: normal bowel sounds Neurological: no focal deficits Psychiatric: not oriented Psychiatric - other findings: agitated Hosp A/P - Plan pt intubated, plan for LP and. covid result pending. Acute hypoxic resp failure requiring intubation -sedated metabolic encephalopathy d/t active alcohol use sepsis has to be r/o ---bl cx neg, and on CTX, zithro Abnromal troponin- type II mismatch macrocytic, chronic anemia Glucosuria COVID - pending.---------> negative high ferritin, elevated d-dimer Transaminitis high CRP Hyponatremia, chronic --d/t chr alcohol use pt extubated at 430 y'day, 2 hour EEG being done at bedside, , likely active withdrawl. d/w RN. alcohol acute withdrawl -pt on precedex, - thiamine etc.. EEG -- no epileptiform discharges- moderate nonspecific cerebral dysn.. heparin tid. protonix. full code.
[2020-04-12] MEDS ORDERED: Heparin 5,000 UNITS/ML VIAL SC SCH (21:00)
[2020-04-12] MEDS: Atorvastatin Calcium 20 MG TAB PO SCH (21:02)
[2020-04-12] MEDS: Loratadine 10 MG TAB PO SCH (21:02)
[2020-04-13 04:29] LABS: #Lymphocytes 0.9 thou/uL (1.20-3.40); #Monocytes 0.8 thou/uL (0.11-0.59); #Neutrophils 5.8 thou/uL (1.40-6.50); %Basophils 0.2 % (0.0-1.0); %Eosinophils 0.3 % (0.0-10.0); %Lymphocytes 12.1 % (21.0-51.0); %Monocytes 10.6 % (0.0-10.0); %Neutrophils 76.9 % (42.0-75.0); Hemoglobin 12.6 g/dL (14.0-18.0); Mean Corpuscular HGB CONC 35.7 g/dL (32.0-36.0); Mean Corpuscular Hemoglobin 35.2 pg (27.0-31.0); Mean Corpuscular Volume 98.6 fL (78.0-98.0); Mean Platelet Volume 7.5 fL (7.4-10.4); Platelet Count 105 thou/uL (130-400); Red Blood Cell (RBC) Count 3.57 mill/uL (4.70-6.10); White Blood Cell (WBC) Count 7.5 thou/uL (4.8-10.8)
[2020-04-13 04:41] LABS: Anion Gap 19 mmol/L (10-20); BUN (Urea Nitrogen) Less than 4 mg/dL (8.4-25.7); Calc. Creatinine Clearance 147 mL/min (70-130); Carbon Dioxide 20 mmol/L (23-31); Chloride 96 mmol/L (98-107); Estimated GFR-MDRD Greater than 90; Glucose 81 mg/dL (80-115); Potassium 3.3 mmol/L (3.5-5.1); Sodium 132 mmol/L (136-145)
[2020-04-13] MEDS ORDERED: Potassium Chloride 20 MEQ TAB PO SCH (08:45)
[2020-04-13] MEDS ORDERED: Pantoprazole 40 MG VIAL IVP SCH (09:00)
[2020-04-13] MEDS: Lactated Ringer's 1,000 ML IV SCH ×2 (10:00→21:23)
[2020-04-13] MEDS: Magnesium Oxide 400 MG TAB PO SCH (10:01)
[2020-04-13] MEDS: Pantoprazole 40 MG VIAL IVP SCH (10:01)
[2020-04-13] MEDS: Folic Acid 1 MG TAB PO SCH (10:02)
[2020-04-13] MEDS: Aspirin 81 mg Enteric Coated Tablet PO SCH (10:02)
[2020-04-13] MEDS: Enoxaparin Sodium 40 MG/0.4 ML SYRINGE SC SCH (10:03)
[2020-04-13] MEDS: Multivitamin W/ Minerals 1 TAB PO SCH (10:03)
[2020-04-13] MEDS: cefTRIAXone\\ROCEPHIN 1 GM in Sodium Chloride 0.9% 100 ML IVPB SCH (10:30)
--- NOTE | 2020-04-13 10:32 | PRG ---
DATE OF SERVICE: 04/13/2020 SUBJECTIVE: The patient is doing much better in terms of anxiety and agitation. He is still on Precedex 0.5 mcg/kg per minute. OBJECTIVE: VITAL SIGNS: On exam, temperature 98.5, pulse 74, blood pressure 130/83, and O2 saturation 100%. 24-hour intake 1162, output 1750. HEENT: Unremarkable. NECK: No adenopathy or JVD. LUNGS: Clear anteriorly. CARDIAC: S1 and S2. Regular. ABDOMEN: Soft. EXTREMITIES: No edema. LABORATORY DATA: White blood cell count 7.5, hematocrit 35.3, and platelet count 105. Sodium 132, potassium 3.3, chloride 96, CO2 of 20, BUN 4, creatinine 0.5, and glucose 81. ASSESSMENT: 1. Alcohol withdrawal - symptoms better. 2. Electrolyte abnormalities. 3. Mild thrombocytopenia, which is improved. PLAN: 1. We can go ahead and start low-dose Lovenox. 2. Continue thiamine supplementation. 3. Push diet. 4. Trial of Precedex. If he can do well off the Precedex, then he can be transferred to the floor. Job ID: [id number]
[2020-04-13] MEDS: Sodium Chloride 0.9% 1,000 ML IV SCH (11:56)
--- NOTE | 2020-04-13 12:20 | PDOC.HOSPP ---
- Subjective Encounter Date: 04/13/20 Subjective: NEUROLOGY PROGRESS NOTE Patient agitated. He is not oriented today or following commands. - Objective Vital Signs & Weight: Vital Signs (12 hours) Temp 04/13/20 04:00 98.5 F Weight Admit Weight 178 lb Weight 178 lb 9.191 oz Most Recent Monitor Data Heart Rate from ECG 80 NIBP 115/73 NIBP BP-Mean 87 Respiration from ECG 13 SpO2 97 I&O: 04/12/20 04/13/20 04/14/20 06:59 06:59 06:59 Intake Total 2820.22 1162.4 460 Output Total 1860 1750 520 Balance 960.22 -587.6 -60 Result Diagrams: 04/13/20 03:42 04/13/20 03:42 Radiology Reviewed by me: Yes EKG Reviewed by me: Yes Hospitalist ROS - Review of Systems ROS unobtainable: due to mental status (agitated) - Medication Medications: Active Medications Generic Name Dose Route Start Last Admin Trade Name Freq PRN Reason Stop Dose Admin Aspirin 81 mg 04/11/20 09:00 04/13/20 10:02 Ecotrin PO 81 mg DAILY [place] Administration Atorvastatin Calcium 20 mg 04/10/20 21:00 04/12/20 21:02 Lipitor PO 20 mg HS [place] Administration Enoxaparin Sodium 40 mg 04/13/20 09:00 04/13/20 10:03 Lovenox SC 40 mg 0900 [place] Administration Folic Acid 1 mg 04/12/20 09:00 04/13/20 10:02 Folvite PO 1 mg DAILY [place] Administration Azithromycin 500 mg/ Sodium 250 mls @ 250 mls/hr 04/10/20 14:00 04/12/20 14: 36 Chloride IVPB 250 mls Q24HR [place] Administration Ceftriaxone Sodium 1 gm/ 100 mls @ 200 mls/hr 04/11/20 09:00 04/13/20 10:30 Sodium Chloride IVPB 100 mls Q24HR [place] Administration Thiamine HCl 100 mg/ Sodium 51 mls @ 100 mls/hr 04/11/20 09:00 04/13/20 10:01 Chloride IVPB 04/14/20 21:31 51 mls Q12HR [place] Administration Dexmedetomidine HCl 200 mcg/ 50 mls @ 0 mls/hr 04/11/20 20:15 04/12/20 23:15 Sodium Chloride IVPB 50 mls INF [place] Administration Protocol Titrate Lactated Ringer's 1,000 mls @ 70 mls/hr 04/13/20 08:45 04/13/20 10:00 Lactated Ringer's IV 1,000 mls .[id number] [place] Administration Iron/Minerals/Multivitamins 1 tab 04/12/20 09:00 04/13/20 10:03 Theragran M PO 1 tab DAILY [place] Administration Loratadine 10 mg 04/10/20 21:00 04/12/20 21:02 Claritin PO 10 mg HS [place] Administration Lorazepam 2 mg 04/11/20 20:02 04/11/20 20:29 Ativan SLOW IVP 2 mg Q2H PRN Administration ANXIETY/WITHRDRAWAL SYMPTOMS Magnesium Oxide 400 mg 04/12/20 09:00 04/13/20 10:01 Magnesium Oxide PO 400 mg DAILY [place] Administration Metoprolol Succinate 25 mg 04/11/20 09:00 04/13/20 10:03 Toprol Xl PO 25 mg DAILY [place] Administration Pantoprazole Sodium 40 mg 04/11/20 09:00 04/13/20 10:01 Protonix IVP 40 mg DAILY [place] Administration Pantoprazole Sodium 40 mg 04/13/20 09:00 04/13/20 10:04 Protonix IVP Not Given DAILY [place] Sodium Chloride 10 ml 04/10/20 09:00 04/13/20 10:05 Flush - Normal Saline IVF 10 ml Q12HR [place] Administration - Exam General Appearance: ill appearing Eye: PERRL ENT: normocephalic atraumatic Neck: supple Heart: RRR Respiratory: CTAB Gastrointestinal: soft Extremities: no cyanosis Skin: normal turgor Neurological: no weakness, no focal deficits, no new deficit Musculoskeletal: normal tone, normal strength, no muscle wasting Psychiatric: not oriented (agitated) Hosp A/P (1) AMS (altered mental status) Code(s): R41.82 - ALTERED MENTAL STATUS, UNSPECIFIED Status: Acute (2) Alcohol intoxication Status: Acute (3) Hypertension Code(s): I10 - ESSENTIAL (PRIMARY) HYPERTENSION Status: Chronic - Plan 64 year old consulted for possible seizure like activity and altered mental status. Most likely alcohol withdrawal. Patient altered and agitated today and not following commands. EEG reviewed which was negative for underlying seizure activity. Continue neurochecks every 2 hours. Recommend MRI brain when stable. Observe seizure precautions. CIWA protocol. Continue medical management per primary team.
--- NOTE | 2020-04-13 14:26 | PDOC.HOSPP ---
- Subjective Encounter Date: 04/13/20 Encounter Time: 01:24 Subjective: pt still confused, off precedex. talk to RN. may have to stay another 1/2 a day in the unit, and could be transferred to med floor, if he is not worsening in mentation [like more agitation requiring again precedex or hemodynamic instability] . - Objective Vital Signs & Weight: Vital Signs (12 hours) Temp 04/13/20 12:00 97.6 F 04/13/20 09:00 98.1 F 04/13/20 04:00 98.5 F Weight Admit Weight 178 lb Weight 178 lb 9.191 oz Most Recent Monitor Data Heart Rate from ECG 80 NIBP 115/73 NIBP BP-Mean 87 Respiration from ECG 13 SpO2 97 I&O: 04/12/20 04/13/20 04/14/20 06:59 06:59 06:59 Intake Total 2820.22 1162.4 1019 Output Total 1860 1750 620 Balance 960.22 -587.6 399 Result Diagrams: 04/13/20 03:42 04/13/20 03:42 Hospitalist ROS - Medication Medications: Active Medications Generic Name Dose Route Start Last Admin Trade Name Freq PRN Reason Stop Dose Admin Aspirin 81 mg 04/11/20 09:00 04/13/20 10:02 Ecotrin PO 81 mg DAILY [place] Administration Atorvastatin Calcium 20 mg 04/10/20 21:00 04/12/20 21:02 Lipitor PO 20 mg HS [place] Administration Enoxaparin Sodium 40 mg 04/13/20 09:00 04/13/20 10:03 Lovenox SC 40 mg 0900 [place] Administration Folic Acid 1 mg 04/12/20 09:00 04/13/20 10:02 Folvite PO 1 mg DAILY [place] Administration Azithromycin 500 mg/ Sodium 250 mls @ 250 mls/hr 04/10/20 14:00 04/12/20 14: 36 Chloride IVPB 250 mls Q24HR [place] Administration Ceftriaxone Sodium 1 gm/ 100 mls @ 200 mls/hr 04/11/20 09:00 04/13/20 10:30 Sodium Chloride IVPB 100 mls Q24HR [place] Administration Thiamine HCl 100 mg/ Sodium 51 mls @ 100 mls/hr 04/11/20 09:00 04/13/20 10:01 Chloride IVPB 04/14/20 21:31 51 mls Q12HR [place] Administration Dexmedetomidine HCl 200 mcg/ 50 mls @ 0 mls/hr 04/11/20 20:15 04/12/20 23:15 Sodium Chloride IVPB 50 mls INF [place] Administration Protocol Titrate Lactated Ringer's 1,000 mls @ 70 mls/hr 04/13/20 08:45 04/13/20 10:00 Lactated Ringer's IV 1,000 mls .[id number] [place] Administration Iron/Minerals/Multivitamins 1 tab 04/12/20 09:00 04/13/20 10:03 Theragran M PO 1 tab DAILY [place] Administration Loratadine 10 mg 04/10/20 21:00 04/12/20 21:02 Claritin PO 10 mg HS [place] Administration Lorazepam 2 mg 04/11/20 20:02 04/11/20 20:29 Ativan SLOW IVP 2 mg Q2H PRN Administration ANXIETY/WITHRDRAWAL SYMPTOMS Magnesium Oxide 400 mg 04/12/20 09:00 04/13/20 10:01 Magnesium Oxide PO 400 mg DAILY [place] Administration Metoprolol Succinate 25 mg 04/11/20 09:00 04/13/20 10:03 Toprol Xl PO 25 mg DAILY [place] Administration Pantoprazole Sodium 40 mg 04/11/20 09:00 04/13/20 10:01 Protonix IVP 40 mg DAILY [place] Administration Sodium Chloride 10 ml 04/10/20 09:00 04/13/20 10:05 Flush - Normal Saline IVF 10 ml Q12HR [place] Administration - Exam General Appearance: NAD General - other findings: confused , throwing stuff on the desk. ENT: normocephalic atraumatic Neck: supple Heart: RRR Respiratory: CTAB, normal chest expansion Gastrointestinal: soft, normal bowel sounds Neurological: no focal deficits Psychiatric: not oriented Hosp A/P - Plan Acute hypoxic resp failure requiring intubation -extbated and was pn precedex and off metabolic encephalopathy d/t active alcohol use sepsis has to be r/o ---bl cx neg, and on CTX, zithro Abnromal troponin- type II mismatch macrocytic, chronic anemia Glucosuria COVID - ------> negative high ferritin, elevated d-dimer Transaminitis high CRP Hyponatremia, chronic --d/t chr alcohol use pt extubated at 430 y'day, 2 hour EEG being done at bedside, , likely active withdrawl. d/w RN. alcohol acute withdrawl -pt on precedex, - thiamine etc.. EEG -- no epileptiform discharges- moderate nonspecific cerebral dysn.. Myoclonic jerks - not true sizure? - antiepileptic per neuro. no nephro c/s for now. heparin tid. protonix. full code. may have to stay another 1/2 a day in the unit, and could be transferred to med floor, if he is not worsening in mentation [like more agitation requiring again precedex or hemodynamic instability]
[2020-04-13] MEDS: Azithromycin 500 MG in Sodium Chloride 0.9% 250 ML 250 ML IVPB SCH (16:08)
[2020-04-13] MEDS: Atorvastatin Calcium 20 MG TAB PO SCH (21:21)
[2020-04-13] MEDS: Loratadine 10 MG TAB PO SCH (21:21)
[2020-04-14 08:12] LABS: Anion Gap 16 mmol/L (10-20); BUN (Urea Nitrogen) Less than 4 mg/dL (8.4-25.7); Calc. Creatinine Clearance 135 mL/min (70-130); Calcium 8.2 mg/dL (7.8-10.44); Carbon Dioxide 22 mmol/L (23-31); Chloride 96 mmol/L (98-107); Estimated GFR-MDRD Greater than 90; Glucose 86 mg/dL (80-115); Potassium 3.1 mmol/L (3.5-5.1); Sodium 131 mmol/L (136-145)
[2020-04-14] MEDS: Pantoprazole 40 MG VIAL IVP SCH (09:07)
[2020-04-14] MEDS: Enoxaparin Sodium 40 MG/0.4 ML SYRINGE SC SCH (09:07)
[2020-04-14] MEDS: cefTRIAXone\\ROCEPHIN 1 GM in Sodium Chloride 0.9% 100 ML IVPB SCH (09:07)
[2020-04-14] MEDS: Aspirin 81 mg Enteric Coated Tablet PO SCH (09:08)
[2020-04-14] MEDS: Folic Acid 1 MG TAB PO SCH (09:08)
[2020-04-14] MEDS: Magnesium Oxide 400 MG TAB PO SCH (09:08)
[2020-04-14] MEDS: Multivitamin W/ Minerals 1 TAB PO SCH (09:08)
[2020-04-14] MEDS: Lactated Ringer's 1,000 ML IV SCH (09:21)
[2020-04-14 09:38] LABS: Hemoglobin 12.2 g/dL (14.0-18.0); MDiff Complete? YES; Mean Corpuscular HGB CONC 36.6 g/dL (32.0-36.0); Mean Corpuscular Hemoglobin 35.5 pg (27.0-31.0); Platelet Count 147 thou/uL (130-400); RBC Distribution Width 11.1 % (11.5-14.5); Red Blood Cell (RBC) Count 3.44 mill/uL (4.70-6.10); White Blood Cell (WBC) Count 7.2 thou/uL (4.8-10.8)
[2020-04-14 09:39] LABS: Band 16 % (5-11); Lymphocytes 20 % (21-51); Monocytes 6 % (0-10); Neutrophil 58 % (42-75)
--- NOTE | 2020-04-14 12:30 | EKG ---
Test Reason : Blood Pressure : / mmHG Vent. Rate : 117 BPM Atrial Rate : 117 BPM P-R Int : 148 ms QRS Dur : 092 ms QT Int : 342 ms P-R-T Axes : 064 033 073 degrees QTc Int : 477 ms Sinus tachycardia Otherwise normal ECG Confirmed by DON BUENO DO ([id number]), editor at large CANDIDA HAYS ([id number]) on 04/14/2020 12:30:18 PM Referred By: Confirmed By:DON BUENO DO
--- NOTE | 2020-04-14 16:21 | PDOC.HOSPP ---
- Subjective Encounter Date: 04/14/20 Encounter Time: 16:18 Subjective: Mr. Bradley was seen today in follow-up of probable alcohol withdrawal seizure. He is currently awake and alert, he is oriented to person, place, time and situation. He tells me he is in the hospital because he " went out". He says when asked, that he had a simialr episode about 3 years ago. He initially denied that he drank much then, but after further questioning he admits that he was drinking much heavier then, and cut back to what he is currently drinking ( a six pack a day) . He doesn't feel he drinks too much now. - Objective Vital Signs & Weight: Vital Signs (12 hours) Temp Pulse Resp BP Pulse Ox 04/14/20 08:33 96 04/14/20 08:00 96 04/14/20 07:26 97.5 F L 85 16 150/85 H 96 Weight Admit Weight 178 lb Weight 178 lb 9.191 oz Most Recent Monitor Data Heart Rate from ECG 93 NIBP 144/88 NIBP BP-Mean 106 Respiration from ECG 20 SpO2 95 I&O: 04/13/20 04/14/20 04/15/20 06:59 06:59 06:59 Intake Total 1162.4 2137 Output Total 1750 1260 Balance -587.6 877 Result Diagrams: 04/14/20 06:41 04/14/20 06:42 Additional Labs: Accuchecks 04/10/20 06:55 POC Glucose 153 H Hospitalist ROS - Medication Medications: Active Medications Generic Name Dose Route Start Last Admin Trade Name Whit PRN Reason Stop Dose Admin Aspirin 81 mg 04/11/20 09:00 04/14/20 09:08 Ecotrin PO 81 mg DAILY [place] Administration Atorvastatin Calcium 20 mg 04/10/20 21:00 04/13/20 21:21 Lipitor PO 20 mg HS [place] Administration Enoxaparin Sodium 40 mg 04/13/20 09:00 04/14/20 09:07 Lovenox SC 40 mg 0900 [place] Administration Folic Acid 1 mg 04/12/20 09:00 04/14/20 09:08 Folvite PO 1 mg DAILY [place] Administration Ceftriaxone Sodium 1 gm/ 100 mls @ 200 mls/hr 04/11/20 09:00 04/14/20 09:07 Sodium Chloride IVPB 100 mls Q24HR [place] Administration Thiamine HCl 100 mg/ Sodium 51 mls @ 100 mls/hr 04/11/20 09:00 04/14/20 10:49 Chloride IVPB 04/14/20 21:31 51 mls Q12HR [place] Administration Dexmedetomidine HCl 200 mcg/ 50 mls @ 0 mls/hr 04/11/20 20:15 04/12/20 23:15 Sodium Chloride IVPB 50 mls INF [place] Administration Protocol Titrate Lactated Ringer's 1,000 mls @ 70 mls/hr 04/13/20 08:45 04/14/20 09:21 Lactated Ringer's IV 1,000 mls .[id number] [place] Administration Iron/Minerals/Multivitamins 1 tab 04/12/20 09:00 04/14/20 09:08 Theragran M PO 1 tab DAILY [place] Administration Loratadine 10 mg 04/10/20 21:00 04/13/20 21:21 Claritin PO 10 mg HS [place] Administration Lorazepam 2 mg 04/11/20 20:02 04/11/20 20:29 Ativan SLOW IVP 2 mg Q2H PRN Administration ANXIETY/WITHRDRAWAL SYMPTOMS Magnesium Oxide 400 mg 04/12/20 09:00 04/14/20 09:08 Magnesium Oxide PO 400 mg DAILY [place] Administration Metoprolol Succinate 25 mg 04/11/20 09:00 04/14/20 09:08 Toprol Xl PO 25 mg DAILY [place] Administration Pantoprazole Sodium 40 mg 04/11/20 09:00 04/14/20 09:07 Protonix IVP 40 mg DAILY [place] Administration Sodium Chloride 10 ml 04/10/20 09:00 04/14/20 09:08 Flush - Normal Saline IVF 10 ml Q12HR [place] Administration - Exam Eye: PERRL, anicteric sclera Heart: RRR, no murmur, no gallops, no rubs, normal peripheral pulses Respiratory: CTAB, no wheezes, no rales, no ronchi, normal chest expansion, no tachypnea Gastrointestinal: soft, non-tender, non-distended, normal bowel sounds, no palpable masses, no hepatomegaly Extremities: no cyanosis, no edema Hosp A/P (1) Alcohol abuse Code(s): F10.10 - ALCOHOL ABUSE, UNCOMPLICATED Status: Acute (2) Seizure Code(s): R56.9 - UNSPECIFIED CONVULSIONS Status: Acute (3) Hypertension Code(s): I10 - ESSENTIAL (PRIMARY) HYPERTENSION Status: Chronic (4) Aspiration pneumonia Code(s): J69.0 - PNEUMONITIS DUE TO INHALATION OF FOOD AND VOMIT Status: Acute - Plan * Alcohol withdrawal and alcohol wothdrawal seizure- he is clinically improving with regards to his mental status- but some things he siad did not make sense. He tells me he has a 50 year old son, and 46 year old daughter- ( not sure if this is accurate based on his age ) * Will monitor in the hospital 1-2 more days * Need to get him up with PT/OT * Aspiration pneumonia- continue Rocephin - can consider discontinuing AZithromycin * Continue Folic acid, Thiamine and Multi-vitamin * HTN- blood pressure is stable
[2020-04-14] MEDS: Potassium Chloride 20 MEQ TAB PO SCH (17:52)
[2020-04-14] MEDS: Loratadine 10 MG TAB PO SCH (20:12)
[2020-04-14] MEDS: Atorvastatin Calcium 20 MG TAB PO SCH (20:12)
[2020-04-15 06:24] LABS: Anion Gap 12 mmol/L (10-20); BUN (Urea Nitrogen) Less than 4 mg/dL (8.4-25.7); Calc. Creatinine Clearance 140 mL/min (70-130); Calcium 8.6 mg/dL (7.8-10.44); Carbon Dioxide 30 mmol/L (23-31); Chloride 95 mmol/L (98-107); Estimated GFR-MDRD Greater than 90; Glucose 103 mg/dL (80-115); Sodium 134 mmol/L (136-145)
[2020-04-15 06:31] LABS: Potassium 2.9 mmol/L (3.5-5.1)
[2020-04-15 06:33] LABS: Band 4 % (5-11); Hypochromia SLIGHT = 6-15 cells (100X) (0-5/hpf); Lymphocytes 24 % (21-51); MDiff Complete? YES; Mean Corpuscular HGB CONC 34.8 g/dL (32.0-36.0); Mean Corpuscular Hemoglobin 33.8 pg (27.0-31.0); Mean Corpuscular Volume 97.1 fL (78.0-98.0); Mean Platelet Volume 6.6 fL (7.4-10.4); Monocytes 8 % (0-10); Neutrophil 64 % (42-75); Platelet Count 170 thou/uL (130-400); Platelet Morphology Comment Appears Adequate; RBC Distribution Width 11.2 % (11.5-14.5); Red Blood Cell (RBC) Count 3.55 mill/uL (4.70-6.10); White Blood Cell (WBC) Count 6.1 thou/uL (4.8-10.8)
[2020-04-15] MEDS ORDERED: Magnesium 2 GM/50 ML 2 GM in Premix Bag 1 BAG IVPB SCH (08:00)
[2020-04-15] MEDS: Aspirin 81 mg Enteric Coated Tablet PO SCH (08:17)
[2020-04-15] MEDS: Thiamine 100 MG TAB PO SCH (08:17)
[2020-04-15] MEDS: Magnesium Oxide 400 MG TAB PO SCH (08:17)
[2020-04-15] MEDS: Multivitamin W/ Minerals 1 TAB PO SCH (08:18)
[2020-04-15] MEDS: Enoxaparin Sodium 40 MG/0.4 ML SYRINGE SC SCH (08:18)
[2020-04-15] MEDS: Pantoprazole 40 MG VIAL IVP SCH (08:18)
[2020-04-15] MEDS: Folic Acid 1 MG TAB PO SCH (08:18)
[2020-04-15] MEDS: Potassium Chloride 20 MEQ TAB PO SCH ×4 (08:18→17:42)
[2020-04-15] MEDS: cefTRIAXone\\ROCEPHIN 1 GM in Sodium Chloride 0.9% 100 ML IVPB SCH (08:39)
[2020-04-15 13:15] LABS: Potassium 3.4 mmol/L (3.5-5.1)
--- NOTE | 2020-04-15 17:21 | PDOC.HOSPP ---
- Subjective Encounter Date: 04/15/20 Encounter Time: 17:20 Subjective: Mr. Bradley was seen today in follow-up of alcohol withdrawal seizure, and alcohol abuse. He does not have any complaints. He ambulated well. No seizures reported. He clarified for me his children. He tells me they are his " step- children" . He does not have any biological offspring. - Objective Vital Signs & Weight: Vital Signs (12 hours) Temp Pulse Resp BP Pulse Ox 04/15/20 08:00 96 04/15/20 07:29 98.3 F 79 16 156/84 H 96 Weight Admit Weight 178 lb Weight 178 lb 9.191 oz Most Recent Monitor Data Heart Rate from ECG 93 NIBP 144/88 NIBP BP-Mean 106 Respiration from ECG 20 SpO2 95 I&O: 04/14/20 04/15/20 04/16/20 06:59 06:59 06:59 Intake Total 2137 Output Total 1260 840 725 Balance 877 -840 -725 Result Diagrams: 04/15/20 05:14 04/15/20 12:48 Hospitalist ROS - Medication Medications: Active Medications Generic Name Dose Route Start Last Admin Trade Name Freq PRN Reason Stop Dose Admin Aspirin 81 mg 04/11/20 09:00 04/15/20 08:17 Ecotrin PO 81 mg DAILY [place] Administration Atorvastatin Calcium 20 mg 04/10/20 21:00 04/14/20 20:12 Lipitor PO 20 mg HS [place] Administration Enoxaparin Sodium 40 mg 04/13/20 09:00 04/15/20 08:18 Lovenox SC 40 mg 0900 [place] Administration Folic Acid 1 mg 04/12/20 09:00 04/15/20 08:18 Folvite PO 1 mg DAILY [place] Administration Ceftriaxone Sodium 1 gm/ 100 mls @ 200 mls/hr 04/11/20 09:00 04/15/20 08:39 Sodium Chloride IVPB 100 mls Q24HR [place] Administration Dexmedetomidine HCl 200 mcg/ 50 mls @ 0 mls/hr 04/11/20 20:15 04/12/20 23:15 Sodium Chloride IVPB 50 mls INF [place] Administration Protocol Titrate Iron/Minerals/Multivitamins 1 tab 04/12/20 09:00 04/15/20 08:18 Theragran M PO 1 tab DAILY [place] Administration Loratadine 10 mg 04/10/20 21:00 04/14/20 20:12 Claritin PO 10 mg HS [place] Administration Lorazepam 2 mg 04/11/20 20:02 04/11/20 20:29 Ativan SLOW IVP 2 mg Q2H PRN Administration ANXIETY/WITHRDRAWAL SYMPTOMS Magnesium Oxide 400 mg 04/12/20 09:00 04/15/20 08:17 Magnesium Oxide PO 400 mg DAILY [place] Administration Metoprolol Succinate 25 mg 04/11/20 09:00 04/15/20 08:17 Toprol Xl PO 25 mg DAILY [place] Administration Pantoprazole Sodium 40 mg 04/11/20 09:00 04/15/20 08:18 Protonix IVP 40 mg DAILY [place] Administration Potassium Chloride 40 meq 04/14/20 17:00 04/15/20 08:18 K-Dur PO 40 meq BID-WM [place] Administration Sodium Chloride 10 ml 04/10/20 09:00 04/15/20 09:25 Flush - Normal Saline IVF 10 ml Q12HR [place] Administration Thiamine HCl 100 mg 04/15/20 09:00 04/15/20 08:17 Thiamine PO 100 mg DAILY [place] Administration - Exam Eye: PERRL, anicteric sclera Heart: RRR, no murmur, no gallops, no rubs, normal peripheral pulses, irregular , diminshed peripheral pulses Respiratory: CTAB, no wheezes, no rales, no ronchi, normal chest expansion, no tachypnea Gastrointestinal: soft, non-tender, non-distended, normal bowel sounds, no palpable masses, no hepatomegaly Extremities: no cyanosis, no edema Hosp A/P (1) Alcohol abuse Code(s): F10.10 - ALCOHOL ABUSE, UNCOMPLICATED Status: Acute (2) Seizure Code(s): R56.9 - UNSPECIFIED CONVULSIONS Status: Acute (3) Hypertension Code(s): I10 - ESSENTIAL (PRIMARY) HYPERTENSION Status: Chronic (4) Aspiration pneumonia Code(s): J69.0 - PNEUMONITIS DUE TO INHALATION OF FOOD AND VOMIT Status: Acute - Plan * Alcohol withdrawal and alcohol withdrawal seizure- he has clinically improved * Hypokalemia and Hypomagnesemia- Continue to replace electrolytes * Continue to ambulate * Aspiration pneumonia- can discontinue Rocephin- continue Omnicef 3 more days * Continue Folic acid, Thiamine and Multi-vitamin * HTN- blood pressure is stable * Home in the AM
[2020-04-15] MEDS: Atorvastatin Calcium 20 MG TAB PO SCH (20:25)
[2020-04-15] MEDS: Loratadine 10 MG TAB PO SCH (20:25)
[2020-04-16 06:31] LABS: Anion Gap 10 mmol/L (10-20); BUN (Urea Nitrogen) 5 mg/dL (8.4-25.7); Calc. Creatinine Clearance 138 mL/min (70-130); Calcium 8.8 mg/dL (7.8-10.44); Carbon Dioxide 31 mmol/L (23-31); Chloride 95 mmol/L (98-107); Estimated GFR-MDRD Greater than 90; Glucose 99 mg/dL (80-115); Potassium 3.9 mmol/L (3.5-5.1); Sodium 132 mmol/L (136-145)
[2020-04-16 07:19] LABS: Hemoglobin 12.4 g/dL (14.0-18.0); Mean Corpuscular Hemoglobin 35.2 pg (27.0-31.0); Mean Corpuscular Volume 97.6 fL (78.0-98.0); Mean Platelet Volume 6.8 fL (7.4-10.4); Platelet Count 202 thou/uL (130-400); RBC Distribution Width 11.5 % (11.5-14.5); Red Blood Cell (RBC) Count 3.52 mill/uL (4.70-6.10)
[2020-04-16] MEDS: Magnesium Oxide 400 MG TAB PO SCH (08:32)
[2020-04-16] MEDS: Folic Acid 1 MG TAB PO SCH (08:33)
[2020-04-16] MEDS: Multivitamin W/ Minerals 1 TAB PO SCH (08:33)
[2020-04-16] MEDS: Thiamine 100 MG TAB PO SCH (08:33)
[2020-04-16] MEDS: Aspirin 81 mg Enteric Coated Tablet PO SCH (08:33)
[2020-04-16] MEDS: Potassium Chloride 20 MEQ TAB PO SCH (08:33)
[2020-04-16] MEDS: Enoxaparin Sodium 40 MG/0.4 ML SYRINGE SC SCH (08:34)
[2020-04-16] MEDS: Pantoprazole 40 MG VIAL IVP SCH (08:35)
[2020-04-16 10:23] LABS: Band 6 % (5-11); Eosinophils 1 % (0-10); Lymphocytes 9 % (21-51); MDiff Complete? YES; Monocytes 28 % (0-10); Neutrophil 56 % (42-75); Platelet Morphology Comment Appears Adequate
[2020-04-16 12:00] VITALS: TEMP 97.6
[2020-04-16 12:01] VITALS: BP 158/82
[2020-04-16 13:14] LABS: West Nile Virus IgG Ab - CSF Negative (Negative); West Nile Virus IgM Ab - CSF Negative (Negative)
--- NOTE | 2020-04-16 13:48 | PDOC.HOSPP ---
- Subjective Encounter Date: 04/16/20 Encounter Time: 13:45 Subjective: Mr. Bradley was seen today in follow-up of alcohol abuse and probable alcohol withdrawal seizure. He does not have any complaints today. - Objective Vital Signs & Weight: Vital Signs (12 hours) Temp Pulse Pulse Resp BP BP BP 04/16/20 11:57 97.6 F 77 16 157/87 H 04/16/20 11:02 78 158/82 H 04/16/20 08:00 04/16/20 07:12 98.3 F 99 17 152/86 H Pulse Ox Pulse Ox 04/16/20 11:57 97 04/16/20 11:02 99 04/16/20 08:00 95 04/16/20 07:12 95 Weight Admit Weight 178 lb Weight 178 lb 9.191 oz Most Recent Monitor Data Heart Rate from ECG 93 NIBP 144/88 NIBP BP-Mean 106 Respiration from ECG 20 SpO2 95 I&O: 04/15/20 04/16/20 04/17/20 06:59 06:59 06:59 Output Total 840 725 Balance -840 -725 Result Diagrams: 04/16/20 05:21 04/16/20 05:21 Hospitalist ROS - Medication Medications: Active Medications Generic Name Dose Route Start Last Admin Trade Name Whit PRN Reason Stop Dose Admin Aspirin 81 mg 04/11/20 09:00 04/16/20 08:33 Ecotrin PO 81 mg DAILY [place] Administration Atorvastatin Calcium 20 mg 04/10/20 21:00 04/15/20 20:25 Lipitor PO 20 mg HS [place] Administration Enoxaparin Sodium 40 mg 04/13/20 09:00 04/16/20 08:34 Lovenox SC 40 mg 0900 [place] Administration Folic Acid 1 mg 04/12/20 09:00 04/16/20 08:33 Folvite PO 1 mg DAILY [place] Administration Dexmedetomidine HCl 200 mcg/ 50 mls @ 0 mls/hr 04/11/20 20:15 04/12/20 23:15 Sodium Chloride IVPB 50 mls INF [place] Administration Protocol Titrate Iron/Minerals/Multivitamins 1 tab 04/12/20 09:00 04/16/20 08:33 Theragran M PO 1 tab DAILY [place] Administration Loratadine 10 mg 04/10/20 21:00 04/15/20 20:25 Claritin PO 10 mg HS [place] Administration Lorazepam 2 mg 04/11/20 20:02 04/11/20 20:29 Ativan SLOW IVP 2 mg Q2H PRN Administration ANXIETY/WITHRDRAWAL SYMPTOMS Magnesium Oxide 400 mg 04/12/20 09:00 04/16/20 08:32 Magnesium Oxide PO 400 mg DAILY [place] Administration Metoprolol Succinate 25 mg 04/11/20 09:00 04/16/20 08:32 Toprol Xl PO 25 mg DAILY [place] Administration Pantoprazole Sodium 40 mg 04/11/20 09:00 04/16/20 08:35 Protonix IVP 40 mg DAILY [place] Administration Potassium Chloride 40 meq 04/14/20 17:00 04/16/20 08:33 K-Dur PO 40 meq BID-WM [place] Administration Sodium Chloride 10 ml 04/10/20 09:00 04/16/20 08:37 Flush - Normal Saline IVF 10 ml Q12HR [place] Administration Thiamine HCl 100 mg 04/15/20 09:00 04/16/20 08:33 Thiamine PO 100 mg DAILY [place] Administration - Exam Eye: PERRL, anicteric sclera Heart: RRR, no murmur, no gallops, no rubs, normal peripheral pulses Respiratory: CTAB, no wheezes, no rales, no ronchi, normal chest expansion, no tachypnea Gastrointestinal: soft, non-tender, non-distended, normal bowel sounds, no palpable masses, no hepatomegaly Extremities: no cyanosis, no edema Hosp A/P (1) Alcohol abuse Code(s): F10.10 - ALCOHOL ABUSE, UNCOMPLICATED Status: Acute (2) Seizure Code(s): R56.9 - UNSPECIFIED CONVULSIONS Status: Acute (3) Hypertension Code(s): I10 - ESSENTIAL (PRIMARY) HYPERTENSION Status: Chronic (4) Aspiration pneumonia Code(s): J69.0 - PNEUMONITIS DUE TO INHALATION OF FOOD AND VOMIT Status: Acute - Plan * Patient is clinically stable, Hypokalemia and hypomagnesemia have been replaced * Stable for discharge home.
--- NOTE | 2020-04-17 04:46 | DIS ---
DATE OF ADMISSION: 04/10/2020 DATE OF DISCHARGE: 04/16/2020 DISCHARGE DISPOSITION: Home. DISCHARGE DIAGNOSES: 1. Probable alcohol withdrawal seizure. 2. Alcohol abuse. 3. Hypertension. 4. Hyperlipidemia. DISCHARGE MEDICATIONS: 1. Thiamine 100 mg daily. 2. Protonix 40 mg daily. 3. Folic acid 1 mg daily. 4. Metoprolol 25 mg extended release daily. 5. Multivitamin once a day. 6. Naprosyn 220 mg daily. 7. Loratadine 10 mg q.h.s. 8. Bentyl 10 mg as needed. 9. Atorvastatin 20 mg q.h.s. 10. Aspirin 81 mg daily. 11. Amlodipine and benazepril 5/10 one tablet daily. IMAGING DONE DURING THE HOSPITAL STAY: The patient had a CT scan of the brain showing no acute intracranial abnormalities. The patient had CTA of the head showing no evidence of any significant stenosis in the great vessels. The patient had an x-ray of the lumbar spine, which was negative. The patient also had a lumbar puncture in which there was no evidence of any infection in the brain or meningitis. CODE STATUS: Full code. ALLERGIES: NO KNOWN DRUG ALLERGIES. HOSPITAL COURSE: Mr. Bradley is a pleasant 64-year-old gentleman who was admitted to the hospital after suffering a seizure. He was evaluated by an altered mental status. He was evaluated by Neurology and it was felt that the seizure was likely the result of an alcohol withdrawal seizure as they were able to elicit a current heavy alcohol use. For this reason, no antiepileptic medication was initiated. He had some mild alcohol withdrawal during his hospital stay as well, for which he was kept in the hospital a couple more days until this was stabilized. He was counseled extensively on the need to abstain from alcohol use and once he was clinically stable, he was able to be discharged home and he is to follow up with Dr. Alexandre in approximately 1 to 2 weeks and I strongly encouraged him to seek help at a structured alcohol rehabilitation program. Job ID: [id number]
--- NOTE | 2020-04-19 06:29 | PQF ---
ARASELI KRUSE TONI MD [id number] CLINICAL DOCUMENTATION CLARIFICATION FORM: POST DISCHARGE Addendum to original discharge summary date: ____ Late entry note date: __ DATE:04/19/2020 ATTN:Kamar Soliman Please exercise your independent, professional judgment in responding to the clarification form. Clinical indicators are provided on the bottom of this form for your review In your clinical opinion based on clinical findings below, can you please identify the etiology of fever and chills if due to: Please check appropriate box(s): [ X ] Aspiration Pneumonia WITH Sepsis [ ] Aspiration Pneumonia WITHOUT Sepsis [ ] Alcohol withdrawal [ ] Other diagnosis [ ] Unable to determine For continuity of documentation, please document condition throughout progress notes and discharge summary. Thank You. CLINICAL INDICATORS - SIGNS / SYMPTOMS / LABS Laboratory 04/10 WBC 8.9, Plt count 107, Neutrophils 87.9, Band 16, plasma Alcohol less than 10 Vital signs 04/10 Temp 100.1, Pulse 106, Resp 16, BP 115/67 Blood culture 04/10 No growth in 5 days H&P p2 04/10 Acute respiratory failure H&P p1 04/10 Metabolic encephalopathy H&P p1 04/10 Dr Sherman He was not feeling good yesterday, fever and chills and he has small rash on his left leg PN p5 04/12 Sepsis has to be r/o Hospitalist PN p1 04/14 Dr Devlin Follow up of probable withdrawal seizure Hospitalist PN p6 04/14 Dr Devlin Alcohol withdrawal and alcohol withdrawal seizure Hospitalist PN p6 04/14 Dr Devlin Aspiration pneumonia RISK FACTORS H&P p1 04/10 64 year-old Male H&P p1 04/10 Alcohol abuse H&P p1 04/10 HTN Hospitalist PN p6 04/14 - Aspiration pneumonia Consult 04/10 Former Smoker TREATMENTS: DEC 29 IV Vancomycin 2 gm DEC 29 IV Azithmycin 500 mg DEC 29 IV Ceftriaxone Sodium 2 gm Dec 29 IVF NS 1L DEC 29 IV Ativan 2 mg DEC 29 IV Magnesium Sulfate 1 gm DEC 29 Folic Acid 1 mg DEC 29 IV lactated Ringer;s 1L Chest X-ray 04/10 Respirapotory Panel 04/10 Mechanical ventilator Lumbar puncture 04/10 Blood culture 04/10 (This form is maintained as a part of the permanent medical record) 2014 [employer]. All Rights Reserved [email or web address] [email or web address]
== END 2020-04-16 15:43 | disposition home or self-care (01) | DRG 871 ==
LOC: ERS 06:46 → CCU 08:50 → T4-A 04-13 21:16
PROVIDERS: ADMIT Internal Medicine; ATTEND Internal Medicine
PROC: 5A1945Z Respiratory Ventilation, 24-96 Consecutive Hours (ICD-10-PCS; 2020-04-10)
PROC: 00JU3ZZ Inspection of Spinal Canal, Percutaneous Approach (ICD-10-PCS; 2020-04-10)
PROC: 009U3ZX Drainage of Spinal Canal, Percutaneous Approach, Diagnostic (ICD-10-PCS; principal; 2020-04-11)
PROC: B01BZZZ Fluoroscopy of Spinal Cord (ICD-10-PCS; 2020-04-11)
DX: A41.9 Sepsis, unspecified organism (principal); G93.41 Metabolic encephalopathy; J96.00 Acute respiratory failure, unspecified whether with hypoxia or hypercapnia; I21.A1 Myocardial infarction type 2; J69.0 Pneumonitis due to inhalation of food and vomit; R40.2312 Coma scale, best motor response, none, at arrival to emergency department; R40.2112 Coma scale, eyes open, never, at arrival to emergency department; R40.2212 Coma scale, best verbal response, none, at arrival to emergency department; J18.9 Pneumonia, unspecified organism; F10.239 Alcohol dependence with withdrawal, unspecified; E87.1 Hypo-osmolality and hyponatremia; Z20.828 Contact with and (suspected) exposure to other viral communicable diseases; R56.9 Unspecified convulsions; I10 Essential (primary) hypertension; E78.5 Hyperlipidemia, unspecified; E78.00 Pure hypercholesterolemia, unspecified; K58.9 Irritable bowel syndrome, unspecified; D69.6 Thrombocytopenia, unspecified; R79.89 Other specified abnormal findings of blood chemistry; D53.9 Nutritional anemia, unspecified; F10.229 Alcohol dependence with intoxication, unspecified; Y90.0 Blood alcohol level of less than 20 mg/100 ml; E87.6 Hypokalemia; E83.42 Hypomagnesemia; Z79.899 Other long term (current) drug therapy; Z87.891 Personal history of nicotine dependence
CPT/HCPCS: 36415; 36416; 51702; 62270; 70450; 70496; 70498; 71045; 72020; 80048; 80053; 80306; 80307; 81003; 82533; 82550; 82553; 82728; 82805; 82945; 83690; 83735; 84157; 84443; 84484; 85025; 85379; 85610; 85730; 86140; 86788; 86789; 87040; 87635; 87899; 89051; 93005; 94002; 94003; 95712; 95819; 95957; 96365; 96366; 96368; 96375; 96376; 99292; C9113; J0456; J0696; J1644; J1650; J2060; J2250; J2704; J3010; J3370; J3411; J3475; J3490; J7030; J7050; Q9967; U0003

== ENCOUNTER 2021-10-21 04:27 | Inpatient (IN) | payer MEDICARE, OTHER ==
[2021-10-21 05:13] LABS: #Lymphocytes 0.5 thou/uL (1.20-3.40); #Monocytes 0.5 thou/uL (0.11-0.59); #Neutrophils 7.3 thou/uL (1.40-6.50); %Eosinophils 0.1 % (0.0-10.0); %Lymphocytes 5.4 % (21.0-51.0); %Monocytes 6.5 % (0.0-10.0); %Neutrophils 88.1 % (42.0-75.0); Mean Corpuscular HGB CONC 35.4 g/dL (32.0-36.0); Mean Corpuscular Hemoglobin 35.5 pg (27.0-31.0); Mean Platelet Volume 6.3 fL (7.4-10.4); Platelet Count 100 thou/uL (130-400); RBC Distribution Width 11.7 % (11.5-14.5); Red Blood Cell (RBC) Count 3.39 mill/uL (4.70-6.10); White Blood Cell (WBC) Count 8.3 thou/uL (4.8-10.8)
[2021-10-21 05:21] LABS: PTT 35.2 sec (22.9-36.1); Prothrombin Time 12.9 sec (12.0-14.7)
[2021-10-21 05:31] LABS: ALT (SGPT) 61 U/L (8-55); AST (SGOT) 86 U/L (5-34); Alkaline Phosphatase 99 U/L (40-110); Anion Gap 16 mmol/L (10-20); BUN (Urea Nitrogen) 5 mg/dL (8.4-25.7); Bilirubin, Total 0.6 mg/dL (0.2-1.2); Calc. Creatinine Clearance 0 mL/min (70-130); Calcium 8.9 mg/dL (7.8-10.44); Carbon Dioxide 21 mmol/L (23-31); Chloride 89 mmol/L (98-107); Globulin 2.4 g/dL (2.4-3.5); Glucose 139 mg/dL (80-115); Magnesium 1.6 mg/dL (1.6-2.6); Potassium 3.8 mmol/L (3.5-5.1); Protein, Total 6.4 g/dL (5.8-8.1); Sodium 122 mmol/L (136-145)
[2021-10-21 05:33] LABS: ALT (SGPT) 58 U/L (8-55); AST (SGOT) 81 U/L (5-34); Albumin 3.8 g/dL (3.4-4.8); Alkaline Phosphatase 95 U/L (40-110); Anion Gap 17 mmol/L (10-20); BUN (Urea Nitrogen) 5 mg/dL (8.4-25.7); Bilirubin, Total 0.5 mg/dL (0.2-1.2); Calc. Creatinine Clearance 0 mL/min (70-130); Calcium 8.9 mg/dL (7.8-10.44); Carbon Dioxide 20 mmol/L (23-31); Chloride 90 mmol/L (98-107); Globulin 2.6 g/dL (2.4-3.5); Glucose 138 mg/dL (80-115); Potassium 3.8 mmol/L (3.5-5.1); Protein, Total 6.4 g/dL (5.8-8.1); Sodium 123 mmol/L (136-145)
[2021-10-21 05:56] LABS: SARS-CoV-2 NAA Rapid Test Not Detected (NotDetected)
[2021-10-21] MEDS ORDERED: Cefepime 2 GM VIAL ONE (07:05)
[2021-10-21 07:55] LABS: Lactic Acid 0.8 mmol/L (0.5-2.2)
[2021-10-21] MEDS ORDERED: Vancomycin 1 GM/200 ML BAG ONE (07:58)
[2021-10-21 08:26] LABS: Bilirubin Negative (Negative); Blood, Urine Negative (Negative); Clarity Clear (Clear); Glucose, Urine (Dipstick) 50 mg/dL (Negative); Ketone, Urine 80 mg/dL (Negative); Leukocyte Negative Leu/uL (Negative); Nitrite Negative (Negative); Protein, Urine (Dipstick) 10 mg/dL (Neg-Trace); Specific Gravity, Urine 1.047 (1.002-1.036); Urobilinogen Normal mg/dL (Less than 2); pH, Urine 5.5 (5.0-9.0)
[2021-10-21] MEDS ORDERED: Ondansetron ODT 4 MG TAB PO PRN ×2 (09:12)
[2021-10-21] MEDS ORDERED: Lorazepam 2 MG/ML VIAL IM PRN (09:12)
[2021-10-21] MEDS ORDERED: hydrALAZINE 20 MG/ML VIAL SLOW IVP PRN (09:12)
[2021-10-21] MEDS ORDERED: Ondansetron PF 4 MG/2 ML Vial IVP PRN (09:12)
[2021-10-21] MEDS ORDERED: Lorazepam 1 MG TAB PO PRN (09:12)
[2021-10-21] MEDS ORDERED: Electrolyte Replacement Protocol 1 EACH FS SCH (09:15)
[2021-10-21] MEDS ORDERED: Folic Acid 1 MG TAB PO SCH (10:15)
[2021-10-21] MEDS ORDERED: Multivit, Therapeutic 1 TAB PO SCH (10:15)
[2021-10-21] MEDS ORDERED: Magnesium 2 GM/50 ML 2 GM in Premix Bag 1 BAG IVPB SCH (10:30)
[2021-10-21] MEDS ORDERED: Electrolyte Replacement Protocol FS PRN (10:30)
[2021-10-21] MEDS ORDERED: Thiamine HCl 200 MG/2 ML VIAL SLOW IVP SCH (10:30)
[2021-10-21] MEDS: Lorazepam 1 MG TAB PO SCH ×2 (11:27→16:33)
[2021-10-21] MEDS ORDERED: Lorazepam 1 MG TAB ONE (11:28)
[2021-10-21 11:39] LABS: Magnesium 1.6 mg/dL (1.6-2.6); Phosphorus 2.2 mg/dL (2.3-4.7)
[2021-10-21 12:12] VITALS: BMI 22.4
[2021-10-21] MEDS ORDERED: Sodium Chloride 0.9% 1,000 ML IV SCH (13:00)
[2021-10-21 13:33] LABS: Amphetamine Not Detected (NotDetected); Barbiturates Screen Not Detected (NotDetected); Benzodiazepine Screen Not Detected (NotDetected); Cocaine Metabolite Screen Not Detected (NotDetected); Methadone Not Detected (NotDetected); Methamphetamine Not Detected (NotDetected); Opiate Screen Not Detected (NotDetected); Oxycodone Screen Not Detected (NotDetected); Phencyclidine (PCP) Not Detected (NotDetected); THC/Cannabinoid Screen Not Detected (NotDetected); Tricyclic Screen Not Detected (NotDetected)
[2021-10-21] MEDS ORDERED: Cefepime 2 GM in Sodium Chloride 0.9% 100 ML IVPB SCH (14:00)
[2021-10-21] MEDS ORDERED: Iopamidol 370 76% 100 ML VIAL ONE (15:14)
[2021-10-21] MEDS ORDERED: Vancomycin 1 GM in Premix Bag 1 BAG IVPB SCH (18:00)
[2021-10-21] MEDS: Famotidine 20 MG TAB PO SCH (20:30)
[2021-10-21] MEDS: Atorvastatin Calcium 20 MG TAB PO SCH (20:38)
[2021-10-21 22:28] LABS: SARS-CoV-2 PCR by NAA Not Detected (NotDetected)
[2021-10-22] MEDS: Lorazepam 1 MG TAB PO SCH ×5 (00:13→21:24)
[2021-10-22] MEDS: Acetaminophen 500 MG TAB PO PRN (05:19)
[2021-10-22 05:29] LABS: #Lymphocytes 1.4 thou/uL (1.20-3.40); #Monocytes 0.9 thou/uL (0.11-0.59); #Neutrophils 4.1 thou/uL (1.40-6.50); %Basophils 0.1 % (0.0-1.0); %Eosinophils 0.2 % (0.0-10.0); %Lymphocytes 21.2 % (21.0-51.0); %Monocytes 14.4 % (0.0-10.0); %Neutrophils 64.2 % (42.0-75.0); Hemoglobin 11.9 g/dL (14.0-18.0); Mean Corpuscular HGB CONC 34.7 g/dL (32.0-36.0); Mean Corpuscular Hemoglobin 35.4 pg (27.0-31.0); Platelet Count 96 thou/uL (130-400); RBC Distribution Width 11.8 % (11.5-14.5); Red Blood Cell (RBC) Count 3.37 mill/uL (4.70-6.10); White Blood Cell (WBC) Count 6.4 thou/uL (4.8-10.8)
[2021-10-22 05:44] LABS: ALT (SGPT) 53 U/L (8-55); AST (SGOT) 97 U/L (5-34); Albumin 3.7 g/dL (3.4-4.8); Alkaline Phosphatase 92 U/L (40-110); Anion Gap 13 mmol/L (10-20); BUN (Urea Nitrogen) 4 mg/dL (8.4-25.7); Bilirubin, Total 0.7 mg/dL (0.2-1.2); Calc. Creatinine Clearance 118 mL/min (70-130); Carbon Dioxide 26 mmol/L (23-31); Chloride 94 mmol/L (98-107); Globulin 2.6 g/dL (2.4-3.5); Glucose 108 mg/dL (80-115); Magnesium 2.2 mg/dL (1.6-2.6); Potassium 3.4 mmol/L (3.5-5.1); Protein, Total 6.3 g/dL (5.8-8.1); Sodium 130 mmol/L (136-145)
[2021-10-22] MEDS ORDERED: Potassium Chloride 20 MEQ TAB PO SCH (07:00)
[2021-10-22] MEDS: Famotidine 20 MG TAB PO SCH ×2 (09:02→21:08)
[2021-10-22] MEDS: Amlodipine 5 mg/Benazepril 10 mg CAP PO SCH (09:02)
[2021-10-22] MEDS: Folic Acid 1 MG TAB PO SCH (09:02)
[2021-10-22] MEDS: Multivit, Therapeutic 1 TAB PO SCH (09:02)
[2021-10-22] MEDS: Thiamine HCl 200 MG/2 ML VIAL SLOW IVP SCH ×3 (09:06→21:24)
[2021-10-22] MEDS ORDERED: Lorazepam 1 MG TAB PO PRN (09:07)
[2021-10-22] MEDS ORDERED: Magnevist 469MG/ML 20 ML VIAL ONE (10:21)
[2021-10-22] MEDS: Atorvastatin Calcium 20 MG TAB PO SCH (21:24)
[2021-10-23] MEDS: Lorazepam 1 MG TAB PO SCH (05:55)
[2021-10-23 06:29] LABS: ALT (SGPT) 49 U/L (8-55); AST (SGOT) 77 U/L (5-34); Albumin 3.7 g/dL (3.4-4.8); Alkaline Phosphatase 90 U/L (40-110); Anion Gap 13 mmol/L (10-20); BUN (Urea Nitrogen) Less than 4 mg/dL (8.4-25.7); Bilirubin, Total 0.9 mg/dL (0.2-1.2); Calc. Creatinine Clearance 133 mL/min (70-130); Carbon Dioxide 27 mmol/L (23-31); Chloride 90 mmol/L (98-107); Globulin 2.8 g/dL (2.4-3.5); Glucose 96 mg/dL (80-115); Protein, Total 6.5 g/dL (5.8-8.1); Sodium 127 mmol/L (136-145)
[2021-10-23 06:33] LABS: Potassium 2.9 mmol/L (3.5-5.1)
[2021-10-23 06:44] LABS: Mean Corpuscular HGB CONC 35.7 g/dL (32.0-36.0); Mean Corpuscular Hemoglobin 35.7 pg (27.0-31.0); Mean Platelet Volume 6.4 fL (7.4-10.4); Platelet Count 97 thou/uL (130-400); RBC Distribution Width 11.4 % (11.5-14.5); Red Blood Cell (RBC) Count 3.35 mill/uL (4.70-6.10)
[2021-10-23 06:45] LABS: Band 3 % (5-11); Hypochromia SLIGHT = 6-15 cells (100X) (0-5/hpf); Lymphocytes 17 % (21-51); MDiff Complete? YES; Macrocytosis SLIGHT = 6-15 cells (100X) (0-5/hpf); Monocytes 12 % (0-10); Neutrophil 67 % (42-75); Platelet Morphology Comment Appears Decreased; Reactive Lymphocytes 1 % (0-10)
[2021-10-23 07:06] LABS: Magnesium 1.9 mg/dL (1.6-2.6)
[2021-10-23] MEDS ORDERED: Potassium Chloride 20 MEQ TAB PO SCH (07:15)
[2021-10-23] MEDS ORDERED: Magnesium 2 GM/50 ML 2 GM in Premix Bag 1 BAG IVPB SCH (09:00)
[2021-10-23] MEDS ORDERED: Lorazepam 1 MG TAB PO PRN (09:07)
[2021-10-23] MEDS: Multivit, Therapeutic 1 TAB PO SCH (09:08)
[2021-10-23] MEDS: Potassium Chloride 20 MEQ TAB PO SCH ×2 (09:08→13:29)
[2021-10-23] MEDS: Famotidine 20 MG TAB PO SCH ×2 (09:08→21:27)
[2021-10-23] MEDS: Thiamine HCl 200 MG/2 ML VIAL SLOW IVP SCH ×3 (09:09→21:27)
[2021-10-23] MEDS: Amlodipine 5 mg/Benazepril 10 mg CAP PO SCH (09:09)
[2021-10-23] MEDS: Folic Acid 1 MG TAB PO SCH (09:09)
[2021-10-23] MEDS: Lorazepam 0.5 MG TAB PO SCH ×3 (11:21→23:29)
[2021-10-23 18:05] LABS: Potassium 3.8 mmol/L (3.5-5.1)
[2021-10-23] MEDS: Atorvastatin Calcium 20 MG TAB PO SCH (21:27)
[2021-10-24] MEDS: Lorazepam 0.5 MG TAB PO SCH (05:43)
[2021-10-24 07:08] LABS: Anion Gap 14 mmol/L (10-20); BUN (Urea Nitrogen) 4 mg/dL (8.4-25.7); Calc. Creatinine Clearance 143 mL/min (70-130); Calcium 8.9 mg/dL (7.8-10.44); Carbon Dioxide 25 mmol/L (23-31); Chloride 90 mmol/L (98-107); Glucose 91 mg/dL (80-115); Magnesium 1.9 mg/dL (1.6-2.6); Potassium 3.5 mmol/L (3.5-5.1); Sodium 125 mmol/L (136-145)
[2021-10-24] MEDS ORDERED: Magnesium 2 GM/50 ML 2 GM in Premix Bag 1 BAG IVPB SCH (09:00)
[2021-10-24] MEDS ORDERED: Potassium Chloride 20 MEQ TAB PO SCH (09:00)
[2021-10-24] MEDS ORDERED: Lorazepam 0.5 MG TAB PO PRN (09:07)
[2021-10-24] MEDS: Acetaminophen 500 MG TAB PO PRN ×2 (09:44→19:05)
[2021-10-24] MEDS: Famotidine 20 MG TAB PO SCH ×2 (09:45→23:27)
[2021-10-24] MEDS: Tamsulosin HCl 0.4 MG CAP PO SCH (09:45)
[2021-10-24] MEDS: Amlodipine 5 mg/Benazepril 10 mg CAP PO SCH (09:45)
[2021-10-24] MEDS: Thiamine HCl 200 MG/2 ML VIAL SLOW IVP SCH ×3 (09:45→23:27)
[2021-10-24] MEDS: Multivitamin W/ Minerals 1 TAB PO SCH (09:45)
[2021-10-24] MEDS: Multivit, Therapeutic 1 TAB PO SCH (09:46)
[2021-10-24] MEDS: Folic Acid 1 MG TAB PO SCH (09:46)
[2021-10-24] MEDS: Thiamine 100 MG TAB PO SCH (09:48)
[2021-10-24] MEDS: Atorvastatin Calcium 20 MG TAB PO SCH (23:27)
[2021-10-25 07:06] LABS: Magnesium 2.1 mg/dL (1.6-2.6)
[2021-10-25] MEDS: Amlodipine 5 mg/Benazepril 10 mg CAP PO SCH (08:29)
[2021-10-25] MEDS: Multivitamin W/ Minerals 1 TAB PO SCH (08:29)
[2021-10-25] MEDS: Famotidine 20 MG TAB PO SCH (08:29)
[2021-10-25] MEDS: Folic Acid 1 MG TAB PO SCH (08:29)
[2021-10-25] MEDS: Thiamine 100 MG TAB PO SCH (08:30)
[2021-10-25] MEDS: Tamsulosin HCl 0.4 MG CAP PO SCH (08:30)
[2021-10-25] MEDS: Multivit, Therapeutic 1 TAB PO SCH (08:30)
[2021-10-25 12:08] VITALS: BP 114/74; TEMP 98
== END 2021-10-25 16:10 | disposition home or self-care (01) | DRG 100 ==
LOC: ERS 04:27 → ERHOLD 06:48 → NEURO 11:41
PROVIDERS: ADMIT Internal Medicine; ATTEND Family Medicine
PROC: HZ2ZZZZ Detoxification Services for Substance Abuse Treatment (ICD-10-PCS; principal; 2021-10-21)
DX: G40.509 Epileptic seizures related to external causes, not intractable, without status epilepticus (principal); G93.41 Metabolic encephalopathy; E87.1 Hypo-osmolality and hyponatremia; F10.10 Alcohol abuse, uncomplicated; I10 Essential (primary) hypertension; F17.220 Nicotine dependence, chewing tobacco, uncomplicated; E78.5 Hyperlipidemia, unspecified; D75.89 Other specified diseases of blood and blood-forming organs; D69.59 Other secondary thrombocytopenia; R74.01 Elevation of levels of liver transaminase levels; R29.6 Repeated falls; Z91.81 History of falling; Z79.899 Other long term (current) drug therapy; Z79.82 Long term (current) use of aspirin; Z28.21 Immunization not carried out because of patient refusal
CPT/HCPCS: 0240U; 36415; 36416; 70150; 70450; 70496; 70498; 70553; 71045; 72040; 80048; 80053; 80306; 81003; 83605; 83735; 84100; 84484; 85025; 85610; 85730; 87040; 87086; 93005; 95816; 95819; 95957; J0692; J3370; J3411; J3475; J3490; J7050; Q9967; U0003; U0005

== ENCOUNTER 2022-09-29 05:19 | Inpatient (IN) | payer MEDICARE, OTHER ==
[2022-09-29] MEDS ORDERED: Acetaminophen 650 MG Suppository ONE (05:42)
[2022-09-29 06:48] LABS: SARS-CoV-2 NAA Rapid Test Not Detected (NotDetected)
[2022-09-29 06:52] LABS: #Lymphocytes 0.3 thou/uL (1.20-3.40); #Monocytes 0.8 thou/uL (0.11-0.59); #Neutrophils 7.6 thou/uL (1.40-6.50); %Basophils 0.1 % (0.0-1.0); %Eosinophils 0.1 % (0.0-10.0); %Lymphocytes 3.9 % (21.0-51.0); %Monocytes 9.1 % (0.0-10.0); %Neutrophils 86.8 % (42.0-75.0); Hemoglobin 12.6 g/dL (14.0-18.0); Mean Corpuscular HGB CONC 35.1 g/dL (32.0-36.0); Mean Corpuscular Hemoglobin 36.2 pg (27.0-31.0); Mean Platelet Volume 6.9 fL (7.4-10.4); Platelet Count 151 10x3/uL (130-400); RBC Distribution Width 10.8 % (11.5-14.5); Red Blood Cell (RBC) Count 3.49 mill/uL (4.70-6.10); White Blood Cell (WBC) Count 8.7 10x3/uL (4.8-10.8)
[2022-09-29 07:09] LABS: Acetaminophen Less than 10.0 mcg/mL (10.0-30.0); Alcohol Less than 10 mg/dL (Less than 10); Salicylate Less than 8.0 mg/dL (15.0-30.0)
[2022-09-29 07:14] LABS: ALT (SGPT) 20 U/L (8-55); AST (SGOT) 28 U/L (5-34); Albumin 4.1 g/dL (3.4-4.8); Alkaline Phosphatase 120 U/L (40-110); Anion Gap 14 mmol/L (10-20); BUN (Urea Nitrogen) 4 mg/dL (8.4-25.7); Bilirubin, Total 0.7 mg/dL (0.2-1.2); Calc. Creatinine Clearance 0 mL/min (70-130); Calcium 8.9 mg/dL (7.8-10.44); Carbon Dioxide 24 mmol/L (23-31); Chloride 90 mmol/L (98-107); Estimated GFR 100; Globulin 2.8 g/dL (2.4-3.5); Glucose 156 mg/dL (80-115); Magnesium 1.6 mg/dL (1.6-2.6); Potassium 3.7 mmol/L (3.5-5.1); Protein, Total 6.9 g/dL (5.8-8.1); Sodium 124 mmol/L (136-145)
[2022-09-29] MEDS ORDERED: Azithromycin 500 MG VIAL ONE (09:36)
[2022-09-29] MEDS ORDERED: cefTRIAXone\\ROCEPHIN 2 GM VIAL ONE (10:59)
[2022-09-29] MEDS ORDERED: Acetaminophen 325 MG TAB PO PRN (11:05)
[2022-09-29] MEDS ORDERED: Lorazepam 2 MG/ML VIAL IM PRN (11:12)
[2022-09-29] MEDS ORDERED: Ondansetron ODT 4 MG TAB PO PRN (11:12)
[2022-09-29] MEDS ORDERED: Lorazepam 1 MG TAB PO PRN (11:12)
[2022-09-29] MEDS ORDERED: Electrolyte Replacement Protocol 1 EACH FS SCH (11:15)
[2022-09-29 11:47] LABS: #Lymphocytes 0.5 thou/uL (1.20-3.40); #Monocytes 0.6 thou/uL (0.11-0.59); #Neutrophils 6.2 thou/uL (1.40-6.50); %Basophils 0.2 % (0.0-1.0); %Eosinophils 0.2 % (0.0-10.0); %Monocytes 8.1 % (0.0-10.0); %Neutrophils 84.5 % (42.0-75.0); Hemoglobin 12.8 g/dL (14.0-18.0); Mean Corpuscular HGB CONC 34.8 g/dL (32.0-36.0); Mean Platelet Volume 6.5 fL (7.4-10.4); Platelet Count 134 10x3/uL (130-400); RBC Distribution Width 10.9 % (11.5-14.5); Red Blood Cell (RBC) Count 3.56 mill/uL (4.70-6.10); White Blood Cell (WBC) Count 7.4 10x3/uL (4.8-10.8)
[2022-09-29] MEDS ORDERED: Lorazepam 1 MG TAB ONE (11:56)
[2022-09-29] MEDS: Lorazepam 1 MG TAB PO SCH ×3 (11:58→23:24)
[2022-09-29] MEDS ORDERED: Electrolyte Replacement Protocol FS PRN (12:00)
[2022-09-29 12:07] LABS: ALT (SGPT) 20 U/L (8-55); AST (SGOT) 28 U/L (5-34); Alkaline Phosphatase 119 U/L (40-110); Anion Gap 14 mmol/L (10-20); BUN (Urea Nitrogen) 4 mg/dL (8.4-25.7); Bilirubin, Direct 0.3 mg/dL (0.1-0.3); Bilirubin, Total 0.6 mg/dL (0.2-1.2); Calc. Creatinine Clearance 117 mL/min (70-130); Calcium 8.5 mg/dL (7.8-10.44); Carbon Dioxide 24 mmol/L (23-31); Chloride 93 mmol/L (98-107); Estimated GFR 101; Globulin 2.7 g/dL (2.4-3.5); Glucose 134 mg/dL (80-115); Magnesium 1.8 mg/dL (1.6-2.6); Phosphorus 3.2 mg/dL (2.3-4.7); Potassium 3.7 mmol/L (3.5-5.1); Protein, Total 6.7 g/dL (5.8-8.1); Sodium 127 mmol/L (136-145)
[2022-09-29] MEDS: Thiamine HCl 200 MG/2 ML VIAL SLOW IVP SCH (12:15)
[2022-09-29 13:32] LABS: Anion Gap 15 mmol/L (10-20); BUN (Urea Nitrogen) 4 mg/dL (8.4-25.7); Calc. Creatinine Clearance 123 mL/min (70-130); Calcium 8.7 mg/dL (7.8-10.44); Carbon Dioxide 23 mmol/L (23-31); Chloride 94 mmol/L (98-107); Estimated GFR 103; Glucose 128 mg/dL (80-115); Potassium 3.8 mmol/L (3.5-5.1); Sodium 128 mmol/L (136-145)
[2022-09-29 15:01] LABS: Syphilis Antibody Nonreactive (Nonreactive); Syphilis Antibody Index 0.03 S/CO (<1.00 Non-Reactive)
[2022-09-29 18:12] VITALS: BMI 21.7
[2022-09-29 18:37] LABS: Anion Gap 11 mmol/L (10-20); BUN (Urea Nitrogen) 4 mg/dL (8.4-25.7); Calc. Creatinine Clearance 122 mL/min (70-130); Calcium 8.7 mg/dL (7.8-10.44); Carbon Dioxide 26 mmol/L (23-31); Chloride 95 mmol/L (98-107); Estimated GFR 104; Glucose 123 mg/dL (80-115); Potassium 3.3 mmol/L (3.5-5.1); Sodium 129 mmol/L (136-145)
[2022-09-29] MEDS ORDERED: Potassium Chloride 20 MEQ TAB PO SCH (19:15)
[2022-09-29] MEDS: Atorvastatin Calcium 20 MG TAB PO SCH (21:47)
[2022-09-29] MEDS: Famotidine 20 MG TAB PO SCH (21:49)
[2022-09-30] MEDS ORDERED: Magnesium 2 GM/50 ML(in water) 2 GM in Premix Bag 1 BAG IVPB SCH (02:45)
[2022-09-30 06:11] LABS: Mean Corpuscular HGB CONC 34.4 g/dL (32.0-36.0); Mean Corpuscular Hemoglobin 35.6 pg (27.0-31.0); Mean Platelet Volume 7.3 fL (7.4-10.4); Platelet Count 133 10x3/uL (130-400); RBC Distribution Width 10.9 % (11.5-14.5); Red Blood Cell (RBC) Count 3.37 mill/uL (4.70-6.10); White Blood Cell (WBC) Count 5.8 10x3/uL (4.8-10.8)
[2022-09-30 06:34] LABS: Anion Gap 13 mmol/L (10-20); BUN (Urea Nitrogen) 5 mg/dL (8.4-25.7); Band 7 % (5-11); Calc. Creatinine Clearance 127 mL/min (70-130); Calcium 8.5 mg/dL (7.8-10.44); Carbon Dioxide 23 mmol/L (23-31); Chloride 95 mmol/L (98-107); Estimated GFR 105; Glucose 97 mg/dL (80-115); Lymphocytes 15 % (21-51); MDiff Complete? YES; Magnesium 2.5 mg/dL (1.6-2.6); Monocytes 9 % (0-10); Neutrophil 68 % (42-75); Potassium 3.4 mmol/L (3.5-5.1); Reactive Lymphocytes 1 % (0-10); Sodium 128 mmol/L (136-145)
[2022-09-30] MEDS: Lorazepam 1 MG TAB PO SCH ×4 (07:54→22:38)
[2022-09-30] MEDS: Aspirin 81 mg Enteric Coated Tablet PO SCH (08:35)
[2022-09-30] MEDS: Famotidine 20 MG TAB PO SCH ×2 (08:35→22:39)
[2022-09-30] MEDS: Folic Acid 1 MG TAB PO SCH (08:35)
[2022-09-30] MEDS: Multivitamin W/ Minerals 1 TAB PO SCH (08:35)
[2022-09-30] MEDS ORDERED: Multivit, Therapeutic 1 TAB PO SCH (09:00)
[2022-09-30] MEDS ORDERED: Folic Acid 1 MG TAB PO SCH (09:00)
[2022-09-30] MEDS ORDERED: Lorazepam 1 MG TAB PO PRN (11:13)
[2022-09-30] MEDS: Thiamine HCl 200 MG/2 ML VIAL SLOW IVP SCH (11:44)
[2022-09-30] MEDS ORDERED: Potassium Chloride 20 MEQ TAB PO SCH (13:30)
[2022-09-30] MEDS ORDERED: Morphine 4 MG/ML VIAL SLOW IVP SCH (17:15)
[2022-09-30] MEDS: Atorvastatin Calcium 20 MG TAB PO SCH (22:38)
[2022-09-30] MEDS: CEFAZOLIN 1 GM in Sodium Chloride 0.9% 100 ML IVPB SCH (22:38)
[2022-10-01] MEDS: CEFAZOLIN 1 GM in Sodium Chloride 0.9% 100 ML IVPB SCH ×3 (05:30→22:16)
[2022-10-01] MEDS: Lorazepam 1 MG TAB PO SCH (05:30)
[2022-10-01 06:10] LABS: Anion Gap 14 mmol/L (10-20); BUN (Urea Nitrogen) 4 mg/dL (8.4-25.7); Calc. Creatinine Clearance 124 mL/min (70-130); Calcium 8.8 mg/dL (7.8-10.44); Carbon Dioxide 24 mmol/L (23-31); Chloride 92 mmol/L (98-107); Estimated GFR 104; Glucose 121 mg/dL (80-115); Potassium 3.6 mmol/L (3.5-5.1); Sodium 126 mmol/L (136-145)
[2022-10-01 07:33] LABS: Mean Corpuscular HGB CONC 34.8 g/dL (32.0-36.0); Mean Corpuscular Hemoglobin 35.6 pg (27.0-31.0); Mean Platelet Volume 6.6 fL (7.4-10.4); Platelet Count 129 10x3/uL (130-400); RBC Distribution Width 10.8 % (11.5-14.5); Red Blood Cell (RBC) Count 3.66 mill/uL (4.70-6.10); White Blood Cell (WBC) Count 5.3 10x3/uL (4.8-10.8)
[2022-10-01] MEDS: Famotidine 20 MG TAB PO SCH ×2 (08:20→20:13)
[2022-10-01] MEDS: Folic Acid 1 MG TAB PO SCH (08:20)
[2022-10-01] MEDS: Multivitamin W/ Minerals 1 TAB PO SCH (08:20)
[2022-10-01] MEDS: Aspirin 81 mg Enteric Coated Tablet PO SCH (08:20)
[2022-10-01 10:27] LABS: Band 13 % (5-11); Lymphocytes 28 % (21-51); MDiff Complete? YES; Monocytes 13 % (0-10); Neutrophil 42 % (42-75); RBC Morphology Normal; Reactive Lymphocytes 4 % (0-10)
[2022-10-01] MEDS ORDERED: Lorazepam 1 MG TAB PO PRN (11:13)
[2022-10-01] MEDS: Thiamine HCl 200 MG/2 ML VIAL SLOW IVP SCH (11:29)
[2022-10-01] MEDS: Lorazepam 0.5 MG TAB PO SCH ×3 (11:29→22:16)
[2022-10-01] MEDS: Sodium Chloride 1 GM TAB PO SCH ×2 (14:28→20:13)
[2022-10-01] MEDS: Atorvastatin Calcium 20 MG TAB PO SCH (20:13)
[2022-10-02] MEDS: Lorazepam 0.5 MG TAB PO SCH (05:54)
[2022-10-02 06:08] LABS: Hemoglobin 13.7 g/dL (14.0-18.0); Mean Corpuscular Hemoglobin 36.1 pg (27.0-31.0); Mean Platelet Volume 7.1 fL (7.4-10.4); Platelet Count 161 10x3/uL (130-400); RBC Distribution Width 10.8 % (11.5-14.5)
[2022-10-02 06:16] LABS: Anion Gap 12 mmol/L (10-20); BUN (Urea Nitrogen) 4 mg/dL (8.4-25.7); Calc. Creatinine Clearance 132 mL/min (70-130); Calcium 9.2 mg/dL (7.8-10.44); Carbon Dioxide 24 mmol/L (23-31); Chloride 94 mmol/L (98-107); Estimated GFR 106; Glucose 92 mg/dL (80-115); Potassium 3.3 mmol/L (3.5-5.1); Sodium 127 mmol/L (136-145)
[2022-10-02 06:39] LABS: Band 4 % (5-11); Lymphocytes 20 % (21-51); MDiff Complete? YES; Monocytes 16 % (0-10); Neutrophil 60 % (42-75)
[2022-10-02] MEDS: CEFAZOLIN 1 GM in Sodium Chloride 0.9% 100 ML IVPB SCH ×3 (06:39→20:34)
[2022-10-02] MEDS: Aspirin 81 mg Enteric Coated Tablet PO SCH (09:19)
[2022-10-02] MEDS: Famotidine 20 MG TAB PO SCH ×2 (09:19→20:33)
[2022-10-02] MEDS: Multivitamin W/ Minerals 1 TAB PO SCH (09:20)
[2022-10-02] MEDS: Folic Acid 1 MG TAB PO SCH (09:20)
[2022-10-02] MEDS ORDERED: Potassium Chloride 20 MEQ TAB PO SCH (10:30)
[2022-10-02] MEDS: Sodium Chloride 1 GM TAB PO SCH ×3 (10:42→20:33)
[2022-10-02] MEDS ORDERED: Lorazepam 0.5 MG TAB PO PRN (11:13)
[2022-10-02] MEDS ORDERED: Thiamine 100 MG TAB PO SCH (11:15)
[2022-10-02] MEDS: Atorvastatin Calcium 20 MG TAB PO SCH (20:33)
[2022-10-03] MEDS: CEFAZOLIN 1 GM in Sodium Chloride 0.9% 100 ML IVPB SCH ×2 (05:57→13:56)
[2022-10-03 06:44] LABS: Anion Gap 14 mmol/L (10-20); BUN (Urea Nitrogen) 4 mg/dL (8.4-25.7); Calc. Creatinine Clearance 132 mL/min (70-130); Calcium 8.9 mg/dL (7.8-10.44); Carbon Dioxide 22 mmol/L (23-31); Chloride 95 mmol/L (98-107); Estimated GFR 106; Glucose 86 mg/dL (80-115); Magnesium 1.7 mg/dL (1.6-2.6); Potassium 3.2 mmol/L (3.5-5.1); Sodium 128 mmol/L (136-145)
[2022-10-03] MEDS: Sodium Chloride 1 GM TAB PO SCH ×2 (09:02→13:56)
[2022-10-03] MEDS: Multivitamin W/ Minerals 1 TAB PO SCH (09:02)
[2022-10-03] MEDS: Folic Acid 1 MG TAB PO SCH (09:02)
[2022-10-03] MEDS: Famotidine 20 MG TAB PO SCH (09:02)
[2022-10-03] MEDS: Aspirin 81 mg Enteric Coated Tablet PO SCH (09:02)
[2022-10-03] MEDS ORDERED: Potassium Chloride 20 MEQ TAB PO SCH (09:45)
[2022-10-03] MEDS ORDERED: Magnesium 2 GM/50 ML(in water) 2 GM in Premix Bag 1 BAG IVPB SCH (11:15)
[2022-10-03 11:36] VITALS: BP 137/89; TEMP 97.9
[2022-10-07] MEDS ORDERED: Thiamine 100 MG TAB PO SCH (09:00)
== END 2022-10-03 15:40 | disposition home or self-care (01) | DRG 896 ==
LOC: ERS 05:19 → ERHOLD 10:02 → NEURO 17:32
PROVIDERS: ADMIT Internal Medicine; ATTEND Internal Medicine
PROC: HZ2ZZZZ Detoxification Services for Substance Abuse Treatment (ICD-10-PCS; principal; 2022-09-29)
DX: F10.121 Alcohol abuse with intoxication delirium (principal); G93.41 Metabolic encephalopathy; E87.1 Hypo-osmolality and hyponatremia; G40.509 Epileptic seizures related to external causes, not intractable, without status epilepticus; L03.115 Cellulitis of right lower limb; Z20.822 Contact with and (suspected) exposure to COVID-19; I10 Essential (primary) hypertension; E78.00 Pure hypercholesterolemia, unspecified; Y90.0 Blood alcohol level of less than 20 mg/100 ml; E87.6 Hypokalemia; E87.8 Other disorders of electrolyte and fluid balance, not elsewhere classified; D50.9 Iron deficiency anemia, unspecified; Z86.16 Personal history of COVID-19; Z79.899 Other long term (current) drug therapy; Z79.82 Long term (current) use of aspirin; Z98.890 Other specified postprocedural states; Z71.41 Alcohol abuse counseling and surveillance of alcoholic
CPT/HCPCS: 36415; 70450; 71045; 80048; 80053; 80307; 82248; 83735; 83930; 83935; 84100; 84145; 84300; 85025; 86780; 87040; 93005; 95712; 95819; 95957; 96361; 96365; 96367; J0456; J0690; J0696; J2270; J3411; J3475; J3490; Q0162

== ENCOUNTER 2022-12-24 12:36 | Outpatient (CLI) | payer MEDICARE, OTHER | END 2022-12-24 12:37 | disposition home or self-care (01) | LOC: ULT 12:36 | PROVIDERS: ATTEND Internal Medicine Nephrology | DX: N18.1 Chronic kidney disease, stage 1 (principal); N32.89 Other specified disorders of bladder | CPT/HCPCS: 76770 ==

== ENCOUNTER 2023-03-29 15:19 | Inpatient (IN) | payer MEDICARE, OTHER ==
[~2023-03-29 15:19] MED LIST: Iopamidol-370 76% 500 ML MDV (1 ML CHARGE) ONE
[2023-03-29] MEDS ORDERED: Rocuronium Bromide 10 MG/ML (10ML VIAL) ONE (15:26)
[2023-03-29 15:51] LABS: #Monocytes 0.9 thou/uL (0.11-0.59); #Neutrophils 4.3 thou/uL (1.40-6.50); %Basophils 0.6 % (0.0-1.0); %Eosinophils 0.2 % (0.0-10.0); %Lymphocytes 20.2 % (21.0-51.0); %Monocytes 13.8 % (0.0-10.0); %Neutrophils 64.3 % (42.0-75.0); Hemoglobin 11.3 g/dL (14.0-18.0); Mean Corpuscular Hemoglobin 34.2 pg (27.0-31.0); Mean Platelet Volume 9.8 fL (7.4-10.4); Platelet Count 143 10x3/uL (130-400); RBC Distribution Width 12.1 % (11.5-14.5); White Blood Cell (WBC) Count 6.6 10x3/uL (4.8-10.8)
[2023-03-29 16:07] LABS: Analyzer IN Cardio ER; Base Excess (BEa) -11.9 mEq/L (-2.0 to +3.0); CO2 Tension 25.5 mmHg (35.0-45.0); Calcium, Ionized (arterial) 1.12 mmol/L (1.12-1.30); Carboxyhemoglobin (COHb) 0.3 gm% (0.0-3.0); Hematocrit-ABG 35 % (42.0-52.0); Hemoglobin (Hb) 11.9 g/dL (14.0-18.0); Potassium - ABG Lab 3.67 mmol/L (3.70-5.30); pH, Arterial 7.314 (7.35-7.45)
[2023-03-29 16:12] LABS: Actual Bicarbonate (HCO3a) 12.7 mEq/L (22-28); Puncture Site RRA
[2023-03-29 16:13] LABS: ALV-art Gradient -48.375 mmHg (0-20)
[2023-03-29 16:20] LABS: ALT (SGPT) 51 U/L (8-55); AST (SGOT) 79 U/L (5-34); Albumin 4.1 g/dL (3.4-4.8); Alkaline Phosphatase 119 U/L (40-110); BUN (Urea Nitrogen) 7 mg/dL (8.4-25.7); Bilirubin, Total 0.5 mg/dL (0.2-1.2); Calc. Creatinine Clearance 0 mL/min (70-130); Calcium 8.7 mg/dL (7.8-10.44); Chloride 99 mmol/L (98-107); Estimated GFR 93; Globulin 2.8 g/dL (2.4-3.5); Glucose 175 mg/dL (80-115); Potassium 4.2 mmol/L (3.5-5.1); Protein, Total 6.9 g/dL (5.8-8.1); Sodium 131 mmol/L (136-145)
[2023-03-29] MEDS ORDERED: Dextrose 5% in Water 1,000 ML IV PRN (16:20)
[2023-03-29] MEDS ORDERED: Dextrose 50% Abboject 50 ML SYRINGE SLOW IVP PRN (16:20)
[2023-03-29] MEDS ORDERED: TETANUS, DIPHTHERIA TOX,ADULT (TDVAX) 0.5 ML VIAL IM ONE (16:20)
[2023-03-29] MEDS ORDERED: Glucagon 1 MG/ML KIT IM PRN (16:20)
[2023-03-29 16:21] LABS: Acetaminophen Less than 10 mcg/mL (10.0-30.0); Alcohol Less than 10.0 mg/dL (Less than 10); Salicylate Less than 8.0 mg/dL (15.0-30.0)
[2023-03-29 16:27] LABS: Carbon Dioxide Less than 8 mmol/L (23-31)
[2023-03-29] MEDS ORDERED: Fentanyl CADD 100 ML IV SCH ×2 (16:30→18:15)
[2023-03-29 16:36] LABS: Bacteria/HPF None Seen HPF (None Seen); Bilirubin Negative (Negative); Blood, Urine Trace (Negative); CAUTI Indications for Culture Alt mental st,lethar; Clarity Clear (Clear); Glucose, Urine (Dipstick) Normal (Negative); Ketone, Urine 10 mg/dL (Negative); Leukocyte Negative Leu/uL (Negative); Nitrite Negative (Negative); Protein, Urine (Dipstick) 10 mg/dL (Neg-Trace); RBC/HPF 0-3 HPF (0-3); Specific Gravity, Urine 1.012 (1.002-1.036); Squamous Epithelial 0-3 HPF (0-3); Urobilinogen Normal mg/dL (Less than 2); WBC/HPF 0-3 HPF (0-3); pH, Urine 5.5 (5.0-9.0)
[2023-03-29 16:39] LABS: Urine Culture Reflex No No
[2023-03-29 16:42] LABS: Amphetamine Not Detected (NotDetected); Barbiturates Screen Not Detected (NotDetected); Benzodiazepine Screen Not Detected (NotDetected); Cocaine Metabolite Screen Not Detected (NotDetected); Methadone Not Detected (NotDetected); Methamphetamine Not Detected (NotDetected); Opiate Screen Not Detected (NotDetected); Oxycodone Screen Not Detected (NotDetected); Phencyclidine (PCP) Not Detected (NotDetected); THC/Cannabinoid Screen Not Detected (NotDetected); Tricyclic Screen Not Detected (NotDetected)
[2023-03-29] MEDS ORDERED: levETIRAcetam 500 MG/5 ML VIAL ONE (16:50)
[2023-03-29] MEDS ORDERED: Boostrix 0.5 ML (Tdap) VIAL (>/=7 yrs of age) ONE (16:50)
[2023-03-29] MEDS ORDERED: CEFAZOLIN 2 GM VIAL ONE (16:50)
[2023-03-29] MEDS ORDERED: Propofol 1,000 MG/100 ML VIAL IV ONE (17:16)
[2023-03-29] MEDS ORDERED: Fentanyl 100 MCG/2 ML VIAL SLOW IVP PRN (17:21)
[2023-03-29 17:25] LABS: Lactic Acid 8.7 mmol/L (0.5-2.2)
[2023-03-29] MEDS ORDERED: Propofol 1,000 MG/100 ML VIAL IV SCH (17:30)
[2023-03-29] MEDS ORDERED: Sodium Chloride 0.9% 1,000 ML IV SCH (17:30)
[2023-03-29] MEDS ORDERED: Propofol BOLUS 1,000 MG/100 ML VIAL IV PRN (18:15)
[2023-03-29] MEDS ORDERED: Lorazepam 2 MG/ML VIAL SLOW IVP PRN (18:15)
[2023-03-29] MEDS ORDERED: DISCONTINUE PREVIOUS NARCOTIC PAIN MEDICATIONS AND BENZODIAZEPINES FS SCH (18:15)
[2023-03-29] MEDS ORDERED: Fentanyl BOLUS 250 ML IVPB PRN (18:15)
[2023-03-29] MEDS ORDERED: Morphine 2 MG/ML VIAL SLOW IVP PRN (18:15)
[2023-03-29] MEDS: Sodium Chloride 0.9% 1,000 ML IV SCH (18:22)
[2023-03-29] MEDS: levETIRAcetam 500 MG/5 ML VIAL SLOW IVP SCH (19:27)
[2023-03-29] MEDS: Propofol 1,000 MG/100 ML VIAL IV PRN (19:27)
[2023-03-29] MEDS ORDERED: Ipratropium/Albuterol 3 ML NEB NEB PRN (20:11)
[2023-03-29] MEDS: Famotidine/PF 20 mg/2ml Vial SLOW IVP SCH (20:24)
[2023-03-29 21:31] LABS: Lactic Acid 1.4 mmol/L (0.5-2.2)
[2023-03-30] MEDS: Ipratropium/Albuterol 3 ML NEB NEB SCH ×4 (00:24→18:25)
[2023-03-30] MEDS: Sodium Chloride 0.9% 1,000 ML IV SCH ×3 (00:27→19:34)
[2023-03-30] MEDS: Propofol 1,000 MG/100 ML VIAL IV PRN (02:53)
[2023-03-30 04:14] LABS: Hemoglobin 8.9 g/dL (14.0-18.0); Manual Diff?? YES; Mean Corpuscular HGB CONC 34.2 g/dL (32.0-36.0); Platelet Count 110 10x3/uL (130-400); RBC Distribution Width 12.2 % (11.5-14.5); Red Blood Cell (RBC) Count 2.62 mill/uL (4.70-6.10); White Blood Cell (WBC) Count 4.5 10x3/uL (4.8-10.8)
[2023-03-30 04:31] LABS: Delete Auto Diff?? YES; Mean Corpuscular Volume 99.2 fl (78.0-98.0)
[2023-03-30 04:40] LABS: Phosphorus 3.1 mg/dL (2.3-4.7)
[2023-03-30 04:41] LABS: Anion Gap 11 mmol/L (10-20); BUN (Urea Nitrogen) 5 mg/dL (8.4-25.7); Calc. Creatinine Clearance 126 mL/min (70-130); Calcium 7.6 mg/dL (7.8-10.44); Carbon Dioxide 19 mmol/L (23-31); Chloride 106 mmol/L (98-107); Estimated GFR 105; Glucose 88 mg/dL (80-115); Magnesium 1.8 mg/dL (1.6-2.6); Potassium 3.3 mmol/L (3.5-5.1); Sodium 133 mmol/L (136-145)
[2023-03-30 05:24] LABS: Band 2 % (5-11); CellaVision Operator ID lab.abc; Large Platelets 3.8 % (0-5); Lymphocytes 15 % (21-51); Monocytes 14 % (0-10); Neutrophil 68 % (42-75); Platelet Adequacy Comment Platelets Decreased; RBC Morphology Within Normal Limits; Smudge Cells 8.7 %; Total Cell Count 104
[2023-03-30] MEDS ORDERED: Magnesium 2 GM/50 ML(in water) 2 GM in Premix Bag 1 BAG IVPB SCH (07:00)
[2023-03-30 07:20] LABS: Actual Bicarbonate (HCO3a) 22.6 mEq/L (22-28); Base Excess (BEa) -1.9 mEq/L (-2.0 to +3.0); CO2 Tension 37.7 mmHg (35.0-45.0); Calcium, Ionized (arterial) 1.09 mmol/L (1.12-1.30); Carboxyhemoglobin (COHb) 0.3 gm% (0.0-3.0); Hematocrit-ABG 31 % (42.0-52.0); Hemoglobin (Hb) 10.4 g/dL (14.0-18.0); O2 Tension (PaO2), arterial 147.8 mmHg (> 80.0); Potassium - ABG Lab 3.26 mmol/L (3.70-5.30); pH, Arterial 7.396 (7.35-7.45)
[2023-03-30 07:21] LABS: ALV-art Gradient 90.275 mmHg (0-20); Puncture Site LRA
[2023-03-30] MEDS ORDERED: Calcium Chloride 13.6 MEQ in Sodium Chloride 0.9% 100 ML IVPB SCH (08:00)
[2023-03-30] MEDS ORDERED: Potassium Phosphate 30 MMOL, Magnesium Sulfate 2 GM in Sodium Chloride 0.9% 250 ML 250 ML IVPB SCH (08:00)
[2023-03-30] MEDS ORDERED: Dexmedetomidine 400 MCG, Admixture Fee 1 EACH in Sodium Chloride 0.9% 96 ML IVPB SCH (08:45)
[2023-03-30] MEDS ORDERED: Dexmedetomidine In 0.9 % NaCl 100 ML IVPB SCH (08:45)
[2023-03-30] MEDS ORDERED: Electrolyte Replacement Protocol 1 EACH FS ONE (08:54)
[2023-03-30] MEDS ORDERED: Electrolyte Replacement Protocol FS PRN (09:15)
[2023-03-30] MEDS: Oxazepam 10 MG CAP PO SCH ×2 (09:51→18:24)
[2023-03-30] MEDS: Famotidine/PF 20 mg/2ml Vial SLOW IVP SCH ×2 (09:52→19:40)
[2023-03-30] MEDS: Multivitamin W/ Minerals 1 TAB PO SCH (09:52)
[2023-03-30] MEDS: Thiamine 100 MG TAB PO SCH (09:52)
[2023-03-30] MEDS: Folic Acid 1 MG TAB PO SCH (09:52)
[2023-03-30] MEDS: levETIRAcetam 500 MG/5 ML VIAL SLOW IVP SCH ×2 (09:52→19:40)
[2023-03-30 12:38] LABS: Bacteria/HPF Rare-Few HPF (None Seen); Bilirubin Negative (Negative); Blood, Urine 2+ (Negative); CAUTI Indications for Culture Alt mental st,lethar; Clarity Turbid (Clear); Glucose, Urine (Dipstick) Normal (Negative); Ketone, Urine Trace mg/dL (Negative); Leukocyte 75 Leu/uL (Negative); Nitrite Negative (Negative); Protein, Urine (Dipstick) 10 mg/dL (Neg-Trace); Specific Gravity, Urine 1.017 (1.002-1.036); Squamous Epithelial 0-3 HPF (0-3); Urobilinogen Normal mg/dL (Less than 2); pH, Urine 5.5 (5.0-9.0)
[2023-03-30 12:40] LABS: Urine Culture Reflex No No
[2023-03-31] MEDS: Ipratropium/Albuterol 3 ML NEB NEB SCH ×5 (00:30→23:47)
[2023-03-31] MEDS: Oxazepam 10 MG CAP PO SCH ×3 (00:39→18:45)
[2023-03-31] MEDS: Sodium Chloride 0.9% 1,000 ML IV SCH ×3 (01:04→20:22)
[2023-03-31 04:03] LABS: #Monocytes 0.9 thou/uL (0.11-0.59); #Neutrophils 5.5 thou/uL (1.40-6.50); %Basophils 0.3 % (0.0-1.0); %Lymphocytes 8.8 % (21.0-51.0); %Monocytes 12.1 % (0.0-10.0); %Neutrophils 78.1 % (42.0-75.0); Hemoglobin 8.7 g/dL (14.0-18.0); Mean Corpuscular HGB CONC 34.8 g/dL (32.0-36.0); Mean Corpuscular Hemoglobin 35.1 pg (27.0-31.0); Mean Corpuscular Volume 100.8 fl (78.0-98.0); RBC Distribution Width 12.2 % (11.5-14.5); Red Blood Cell (RBC) Count 2.48 mill/uL (4.70-6.10)
[2023-03-31 04:25] LABS: Anion Gap 12 mmol/L (10-20); BUN (Urea Nitrogen) 4 mg/dL (8.4-25.7); Calc. Creatinine Clearance 128 mL/min (70-130); Calcium 8.1 mg/dL (7.8-10.44); Carbon Dioxide 22 mmol/L (23-31); Chloride 105 mmol/L (98-107); Estimated GFR 105; Glucose 110 mg/dL (80-115); Magnesium 1.9 mg/dL (1.6-2.6); Phosphorus 3.1 mg/dL (2.3-4.7); Potassium 3.6 mmol/L (3.5-5.1); Sodium 135 mmol/L (136-145)
[2023-03-31 04:40] LABS: Platelet Count 112 10x3/uL (130-400)
[2023-03-31] MEDS ORDERED: Magnesium 2 GM/50 ML(in water) 2 GM in Premix Bag 1 BAG IVPB SCH (09:00)
[2023-03-31] MEDS: Famotidine/PF 20 mg/2ml Vial SLOW IVP SCH ×2 (09:24→20:21)
[2023-03-31] MEDS: Multivitamin W/ Minerals 1 TAB PO SCH (09:24)
[2023-03-31] MEDS: Thiamine 100 MG TAB PO SCH (09:24)
[2023-03-31] MEDS: Folic Acid 1 MG TAB PO SCH (09:24)
[2023-03-31] MEDS: levETIRAcetam 500 MG/5 ML VIAL SLOW IVP SCH ×2 (09:25→20:22)
[2023-03-31] MEDS: Amlodipine 5 mg/Benazepril 10 mg CAP PO SCH (09:50)
[2023-03-31] MEDS ORDERED: Lorazepam 2 MG/ML VIAL SLOW IVP SCH (15:00)
[2023-03-31] MEDS ORDERED: Lorazepam 2 MG/ML VIAL SLOW IVP PRN (16:55)
[2023-03-31] MEDS: Dexmedetomidine 400 MCG, Admixture Fee 1 EACH in Sodium Chloride 0.9% 96 ML IVPB SCH (20:23)
[2023-04-01] MEDS: Oxazepam 10 MG CAP PO SCH ×3 (00:37→17:19)
[2023-04-01] MEDS: Sodium Chloride 0.9% 1,000 ML IV SCH ×3 (02:53→23:00)
[2023-04-01] MEDS: Dexmedetomidine 400 MCG, Admixture Fee 1 EACH in Sodium Chloride 0.9% 96 ML IVPB SCH (04:18)
[2023-04-01] MEDS: Ipratropium/Albuterol 3 ML NEB NEB SCH ×4 (07:32→23:09)
[2023-04-01] MEDS: Multivitamin W/ Minerals 1 TAB PO SCH (08:31)
[2023-04-01] MEDS: Metoprolol Tartrate 25 MG TAB PO SCH ×2 (08:31→20:51)
[2023-04-01] MEDS: Famotidine 20 MG TAB PER TUBE SCH ×2 (08:31→20:53)
[2023-04-01] MEDS: Thiamine 100 MG TAB PO SCH (08:31)
[2023-04-01] MEDS: Folic Acid 1 MG TAB PO SCH (08:31)
[2023-04-01] MEDS: levETIRAcetam 500 MG/5 ML VIAL SLOW IVP SCH ×2 (08:32→20:51)
[2023-04-01] MEDS: Amlodipine 5 mg/Benazepril 10 mg CAP PO SCH (09:36)
[2023-04-01 22:42] LABS: Actual Bicarbonate (HCO3a) 25.3 mEq/L (22-28); Base Excess (BEa) 2.3 mEq/L (-2.0 to +3.0); CO2 Tension 33.1 mmHg (35.0-45.0); Calcium, Ionized (arterial) 1.13 mmol/L (1.12-1.30); Carboxyhemoglobin (COHb) 0.3 gm% (0.0-3.0); Hematocrit-ABG 28 % (42.0-52.0); Hemoglobin (Hb) 9.5 g/dL (14.0-18.0); Potassium - ABG Lab 2.84 mmol/L (3.70-5.30); pH, Arterial 7.501 (7.35-7.45)
[2023-04-01 22:45] LABS: O2 Tension (PaO2), arterial 49.1 mmHg (> 80.0)
[2023-04-01 22:46] LABS: ALV-art Gradient 137.685 mmHg (0-20); Puncture Site LRA
[2023-04-02] MEDS: Oxazepam 10 MG CAP PO SCH ×3 (00:15→17:25)
[2023-04-02 04:26] LABS: #Neutrophils 4.9 thou/uL (1.40-6.50); %Basophils 0.1 % (0.0-1.0); %Eosinophils 0.4 % (0.0-10.0); %Lymphocytes 13.6 % (21.0-51.0); %Monocytes 14.8 % (0.0-10.0); Hemoglobin 8.1 g/dL (14.0-18.0); Mean Corpuscular HGB CONC 34.9 g/dL (32.0-36.0); Mean Corpuscular Volume 97.5 fl (78.0-98.0); Mean Platelet Volume 9.7 fL (7.4-10.4); Platelet Count 133 10x3/uL (130-400); RBC Distribution Width 11.9 % (11.5-14.5); Red Blood Cell (RBC) Count 2.38 mill/uL (4.70-6.10)
[2023-04-02 04:47] LABS: Anion Gap 13 mmol/L (10-20); BUN (Urea Nitrogen) 8 mg/dL (8.4-25.7); Calc. Creatinine Clearance 132 mL/min (70-130); Calcium 8.5 mg/dL (7.8-10.44); Carbon Dioxide 25 mmol/L (23-31); Chloride 99 mmol/L (98-107); Estimated GFR 106; Glucose 136 mg/dL (80-115); Magnesium 1.7 mg/dL (1.6-2.6); Phosphorus 1.9 mg/dL (2.3-4.7); Sodium 134 mmol/L (136-145)
[2023-04-02 04:52] LABS: Potassium 2.6 mmol/L (3.5-5.1)
[2023-04-02] MEDS ORDERED: Magnesium 2 GM/50 ML(in water) 2 GM in Premix Bag 1 BAG IVPB SCH ×2 (05:00→17:45)
[2023-04-02] MEDS: Potassium Bicarbonate/Cit Ac 20 MEQ TAB PER TUBE SCH ×2 (05:02→09:24)
[2023-04-02] MEDS: PHOS-NAK 1 PKT PACK PER TUBE SCH ×2 (05:02→09:26)
[2023-04-02 05:12] LABS: Manual Diff?? YES
[2023-04-02 06:01] LABS: Band 21 % (5-11); CellaVision Operator ID LAB.JMM; Lymphocytes 6 % (21-51); Monocytes 7 % (0-10); Neutrophil 66 % (42-75); Platelet Adequacy Comment Platelets Normal; RBC Morphology Within Normal Limits; Total Cell Count 101
[2023-04-02] MEDS ORDERED: Magnesium 2 GM/50 ML(in water) 4 GM in Premix Bag 1 BAG IVPB SCH (07:15)
[2023-04-02] MEDS ORDERED: Potassium Chloride 20 MEQ in Premix Bag 1 BAG IVPB SCH (07:15)
[2023-04-02] MEDS ORDERED: Potassium Phosphate 30 MMOL in Sodium Chloride 0.9% 250 ML 250 ML IVPB SCH (07:15)
[2023-04-02] MEDS: Ipratropium/Albuterol 3 ML NEB NEB SCH ×3 (07:19→18:52)
[2023-04-02] MEDS: Metoprolol Tartrate 25 MG TAB PO SCH ×2 (09:27→20:44)
[2023-04-02] MEDS: Thiamine 100 MG TAB PO SCH (09:30)
[2023-04-02] MEDS: Folic Acid 1 MG TAB PO SCH (09:30)
[2023-04-02] MEDS: Multivitamin W/ Minerals 1 TAB PO SCH (09:30)
[2023-04-02] MEDS: Famotidine 20 MG TAB PER TUBE SCH ×2 (09:31→20:44)
[2023-04-02] MEDS: Amlodipine 5 mg/Benazepril 10 mg CAP PO SCH (09:31)
[2023-04-02] MEDS: Mag-Al 1200 mg/1200 mg/30 ML UDCUP PO SCH (09:42)
[2023-04-02] MEDS: levETIRAcetam 500 MG/5 ML VIAL SLOW IVP SCH ×2 (09:42→20:44)
[2023-04-02] MEDS ORDERED: Mag-Al 1200 mg/1200 mg/30 ML UDCUP PO SCH (12:00)
[2023-04-02] MEDS: cloNIDine 0.1 MG TAB PO SCH ×3 (13:54→23:19)
[2023-04-02 16:01] LABS: Anion Gap 13 mmol/L (10-20); BUN (Urea Nitrogen) 10 mg/dL (8.4-25.7); Calc. Creatinine Clearance 129 mL/min (70-130); Calcium 8.7 mg/dL (7.8-10.44); Carbon Dioxide 26 mmol/L (23-31); Chloride 100 mmol/L (98-107); Estimated GFR 105; Glucose 149 mg/dL (80-115); Magnesium 2.1 mg/dL (1.6-2.6); Phosphorus 2.3 mg/dL (2.3-4.7); Potassium 3.2 mmol/L (3.5-5.1); Sodium 136 mmol/L (136-145)
[2023-04-02] MEDS: Potassium Chloride 20 MEQ in Premix Bag 1 BAG IVPB SCH ×2 (19:01→21:45)
[2023-04-03] MEDS: Oxazepam 10 MG CAP PO SCH ×3 (00:06→17:39)
[2023-04-03] MEDS: Ipratropium/Albuterol 3 ML NEB NEB SCH ×2 (01:31→06:59)
[2023-04-03] MEDS: Acetaminophen 500 MG TAB PO PRN (02:23)
[2023-04-03 04:10] LABS: Anion Gap 10 mmol/L (10-20); BUN (Urea Nitrogen) 11 mg/dL (8.4-25.7); Calc. Creatinine Clearance 134 mL/min (70-130); Calcium 8.4 mg/dL (7.8-10.44); Carbon Dioxide 28 mmol/L (23-31); Chloride 101 mmol/L (98-107); Estimated GFR 106; Glucose 133 mg/dL (80-115); Magnesium 2.2 mg/dL (1.6-2.6); Potassium 3.2 mmol/L (3.5-5.1); Sodium 136 mmol/L (136-145)
[2023-04-03] MEDS: cloNIDine 0.1 MG TAB PO SCH ×3 (05:10→17:39)
[2023-04-03] MEDS ORDERED: Potassium Chloride 20 MEQ in Premix Bag 1 BAG IVPB SCH (06:30)
[2023-04-03] MEDS ORDERED: Potassium Phosphate 30 MMOL in Sodium Chloride 0.9% 250 ML 250 ML IVPB SCH (07:15)
[2023-04-03] MEDS: Amlodipine 5 mg/Benazepril 10 mg CAP PO SCH (09:33)
[2023-04-03] MEDS: Metoprolol Tartrate 25 MG TAB PO SCH ×2 (09:34→20:26)
[2023-04-03] MEDS: Multivitamin W/ Minerals 1 TAB PO SCH (09:36)
[2023-04-03] MEDS: Folic Acid 1 MG TAB PO SCH (09:36)
[2023-04-03] MEDS: Thiamine 100 MG TAB PO SCH (09:36)
[2023-04-03] MEDS: Famotidine 20 MG TAB PER TUBE SCH ×2 (09:37→20:26)
[2023-04-03] MEDS: levETIRAcetam 500 MG/5 ML VIAL SLOW IVP SCH ×2 (09:38→20:26)
[2023-04-03] MEDS: Mag-Al 1200 mg/1200 mg/30 ML UDCUP PO SCH (09:38)
[2023-04-03] MEDS ORDERED: Furosemide 40 MG/4 ML VIAL SLOW IVP SCH ×2 (10:30→17:15)
[2023-04-03 17:43] LABS: Anion Gap 12 mmol/L (10-20); BUN (Urea Nitrogen) 10 mg/dL (8.4-25.7); Calc. Creatinine Clearance 121 mL/min (70-130); Calcium 9.4 mg/dL (7.8-10.44); Carbon Dioxide 30 mmol/L (23-31); Chloride 97 mmol/L (98-107); Estimated GFR 103; Glucose 135 mg/dL (80-115); Magnesium 1.8 mg/dL (1.6-2.6); Phosphorus 4.4 mg/dL (2.3-4.7); Potassium 3.3 mmol/L (3.5-5.1); Sodium 136 mmol/L (136-145)
[2023-04-03] MEDS ORDERED: Magnesium Sulfate In Water 4 GM in Premix Bag 1 BAG IVPB SCH (18:00)
[2023-04-03] MEDS ORDERED: Magnesium 2 GM/50 ML(in water) 4 GM in Premix Bag 1 BAG IVPB SCH (18:00)
[2023-04-03] MEDS: Potassium Chloride 20 MEQ in Premix Bag 1 BAG IVPB SCH ×2 (18:12→20:26)
[2023-04-04] MEDS: cloNIDine 0.1 MG TAB PO SCH ×4 (00:10→19:04)
[2023-04-04] MEDS: Oxazepam 10 MG CAP PO SCH ×3 (00:10→17:53)
[2023-04-04] MEDS: Acetaminophen 500 MG TAB PO PRN ×2 (00:12→08:26)
[2023-04-04 04:45] LABS: Anion Gap 13 mmol/L (10-20); BUN (Urea Nitrogen) 12 mg/dL (8.4-25.7); Calc. Creatinine Clearance 125 mL/min (70-130); Calcium 8.9 mg/dL (7.8-10.44); Carbon Dioxide 31 mmol/L (23-31); Chloride 97 mmol/L (98-107); Estimated GFR 104; Glucose 104 mg/dL (80-115); Phosphorus 5.2 mg/dL (2.3-4.7); Potassium 3.5 mmol/L (3.5-5.1); Sodium 137 mmol/L (136-145)
[2023-04-04] MEDS ORDERED: Potassium Chloride 20 MEQ TAB PO SCH (08:00)
[2023-04-04] MEDS: Metoprolol Tartrate 25 MG TAB PO SCH ×2 (08:20→20:33)
[2023-04-04] MEDS: Mag-Al 1200 mg/1200 mg/30 ML UDCUP PO SCH (08:20)
[2023-04-04] MEDS: Multivitamin W/ Minerals 1 TAB PO SCH (08:20)
[2023-04-04] MEDS: Thiamine 100 MG TAB PO SCH (08:21)
[2023-04-04] MEDS: Famotidine 20 MG TAB PER TUBE SCH ×2 (08:21→20:33)
[2023-04-04] MEDS: levETIRAcetam 500 MG/5 ML VIAL SLOW IVP SCH ×2 (08:21→20:33)
[2023-04-04] MEDS: Amlodipine 5 mg/Benazepril 10 mg CAP PO SCH (08:21)
[2023-04-04] MEDS: Folic Acid 1 MG TAB PO SCH (08:22)
[2023-04-04 11:38] LABS: Potassium 3.7 mmol/L (3.5-5.1)
[2023-04-04 11:47] LABS: Magnesium 2.4 mg/dL (1.6-2.6)
[2023-04-04 12:10] VITALS: BP 71/46
[2023-04-04 14:57] VITALS: BMI 25.4
[2023-04-05] MEDS: Acetaminophen 500 MG TAB PO PRN (00:06)
[2023-04-05] MEDS: cloNIDine 0.1 MG TAB PO SCH ×3 (00:07→12:37)
[2023-04-05] MEDS: Oxazepam 10 MG CAP PO SCH ×2 (00:07→08:42)
[2023-04-05 04:02] LABS: #Eosinphils 0.1 thou/uL (0.0-0.7); #Monocytes 1.7 thou/uL (0.11-0.59); #Neutrophils 3.8 thou/uL (1.40-6.50); %Basophils 0.6 % (0.0-1.0); %Eosinophils 1.3 % (0.0-10.0); %Lymphocytes 16.9 % (21.0-51.0); %Monocytes 24.3 % (0.0-10.0); %Neutrophils 55.9 % (42.0-75.0); Hemoglobin 8.1 g/dL (14.0-18.0); Manual Diff?? YES; Mean Corpuscular HGB CONC 34.9 g/dL (32.0-36.0); Mean Corpuscular Hemoglobin 34.8 pg (27.0-31.0); Mean Corpuscular Volume 99.6 fl (78.0-98.0); Mean Platelet Volume 9.4 fL (7.4-10.4); Platelet Count 206 10x3/uL (130-400); RBC Distribution Width 12.5 % (11.5-14.5); Red Blood Cell (RBC) Count 2.33 mill/uL (4.70-6.10); White Blood Cell (WBC) Count 6.8 10x3/uL (4.8-10.8)
[2023-04-05 04:26] LABS: Anion Gap 11 mmol/L (10-20); BUN (Urea Nitrogen) 17 mg/dL (8.4-25.7); Calc. Creatinine Clearance 117 mL/min (70-130); Calcium 8.8 mg/dL (7.8-10.44); Carbon Dioxide 29 mmol/L (23-31); Chloride 97 mmol/L (98-107); Estimated GFR 103; Glucose 106 mg/dL (80-115); Magnesium 2.1 mg/dL (1.6-2.6); Phosphorus 4.3 mg/dL (2.3-4.7); Potassium 3.2 mmol/L (3.5-5.1); Sodium 134 mmol/L (136-145)
[2023-04-05 06:15] LABS: Band 6 % (5-11); Eosinophils 2 % (0-10); Hypochromia SLIGHT = 6-15 cells HPF (0-5); Lymphocytes 17 % (21-51); Monocytes 16 % (0-10); Neutrophil 59 % (42-75); Platelet Adequacy Comment Platelets Normal; Polychromasia SLIGHT = 2-3 cells HPF (0-2); Total Cell Count 100
[2023-04-05] MEDS ORDERED: Potassium Chloride 20 MEQ TAB PO SCH (08:00)
[2023-04-05] MEDS: Multivitamin W/ Minerals 1 TAB PO SCH (08:41)
[2023-04-05] MEDS: Famotidine 20 MG TAB PER TUBE SCH (08:41)
[2023-04-05] MEDS: Folic Acid 1 MG TAB PO SCH (08:41)
[2023-04-05] MEDS: Mag-Al 1200 mg/1200 mg/30 ML UDCUP PO SCH (08:41)
[2023-04-05] MEDS: levETIRAcetam 500 MG/5 ML VIAL SLOW IVP SCH (08:42)
[2023-04-05] MEDS: Amlodipine 5 mg/Benazepril 10 mg CAP PO SCH (08:42)
[2023-04-05] MEDS: Metoprolol Tartrate 25 MG TAB PO SCH (08:42)
[2023-04-05] MEDS: Thiamine 100 MG TAB PO SCH (08:42)
[2023-04-05 11:54] VITALS: TEMP 97.9
== END 2023-04-05 14:45 | DRG 82 ==
LOC: ERS 15:19 → ERHOLD 16:36 → CCU 17:51 → SURG A 04-03 13:06 → CCU 04-03 13:14 → IMCU/EMU 04-03 15:12
PROVIDERS: ADMIT Surgery; ATTEND Surgery
PROC: 5A1935Z Respiratory Ventilation, Less than 24 Consecutive Hours (ICD-10-PCS; principal; 2023-03-29)
PROC: 0D9670Z Drainage of Stomach with Drainage Device, Via Natural or Artificial Opening (ICD-10-PCS; 2023-03-29)
PROC: 0BH17EZ Insertion of Endotracheal Airway into Trachea, Via Natural or Artificial Opening (ICD-10-PCS; 2023-03-29)
PROC: 0HQ0XZZ Repair Scalp Skin, External Approach (ICD-10-PCS; 2023-03-29)
PROC: 4A133R1 Monitoring of Arterial Saturation, Peripheral, Percutaneous Approach (ICD-10-PCS; 2023-03-29)
PROC: HZ2ZZZZ Detoxification Services for Substance Abuse Treatment (ICD-10-PCS; 2023-03-29)
PROC: 5A0935A Assistance with Respiratory Ventilation, Less than 24 Consecutive Hours, High Flow/Velocity Cannula (ICD-10-PCS; 2023-04-02)
DX: S06.6XAA Traumatic subarachnoid hemorrhage with loss of consciousness status unknown, initial encounter (principal); J96.01 Acute respiratory failure with hypoxia; F10.239 Alcohol dependence with withdrawal, unspecified; E87.20 Acidosis, unspecified; J98.11 Atelectasis; S01.01XA Laceration without foreign body of scalp, initial encounter; Z23 Encounter for immunization; I10 Essential (primary) hypertension; E78.5 Hyperlipidemia, unspecified; K58.9 Irritable bowel syndrome, unspecified; G40.409 Other generalized epilepsy and epileptic syndromes, not intractable, without status epilepticus; H35.60 Retinal hemorrhage, unspecified eye; Y90.0 Blood alcohol level of less than 20 mg/100 ml; W01.0XXA Fall on same level from slipping, tripping and stumbling without subsequent striking against object, initial encounter; E87.6 Hypokalemia; E83.42 Hypomagnesemia; E83.39 Other disorders of phosphorus metabolism; R13.10 Dysphagia, unspecified; Y92.002 Bathroom of unspecified non-institutional (private) residence as the place of occurrence of the external cause; Z79.82 Long term (current) use of aspirin; Z78.1 Physical restraint status; Z79.899 Other long term (current) drug therapy; R40.2312 Coma scale, best motor response, none, at arrival to emergency department; R40.2112 Coma scale, eyes open, never, at arrival to emergency department; R40.2212 Coma scale, best verbal response, none, at arrival to emergency department
CPT/HCPCS: 12032; 31500; 36415; 36416; 36600; 51702; 70450; 71045; 71260; 72125; 74018; 74177; 80048; 80053; 80306; 80307; 81001; 82805; 83605; 83735; 84100; 84146; 84484; 85025; 86850; 86900; 86901; 90715; 93005; 93010; 94002; 94003; 94640; 95712; 95819; 95957; 96365; 96367; 96374; G0390; J1650; J1940; J1953; J2060; J2704; J3475; J3480; J3490; J7050; J7611; J7620; Q9967; S0028

== ENCOUNTER 2023-05-31 12:47 | Inpatient (IN) | payer MEDICARE, OTHER ==
[2023-05-31 13:29] LABS: #Monocytes 1.7 thou/uL (0.11-0.59); #Neutrophils 8.2 thou/uL (1.40-6.50); %Basophils 0.3 % (0.0-1.0); %Eosinophils 0.2 % (0.0-10.0); %Monocytes 13.8 % (0.0-10.0); %Neutrophils 66.1 % (42.0-75.0); Hematocrit 30.8 % (42.0-52.0); Hemoglobin 10.5 g/dL (14.0-18.0); Mean Corpuscular HGB CONC 34.1 g/dL (32.0-36.0); Mean Corpuscular Hemoglobin 31.4 pg (27.0-31.0); Mean Corpuscular Volume 92.2 fl (78.0-98.0); Mean Platelet Volume 9.1 fL (7.4-10.4); Platelet Count 325 10x3/uL (130-400); RBC Distribution Width 14.1 % (11.5-14.5); Red Blood Cell (RBC) Count 3.34 mill/uL (4.70-6.10); White Blood Cell (WBC) Count 12.4 10x3/uL (4.8-10.8)
[2023-05-31] MEDS ORDERED: Cefepime 2 GM VIAL ONE (13:55)
[2023-05-31 13:57] LABS: ALT (SGPT) 9 U/L (8-55); AST (SGOT) 15 U/L (5-34); Albumin 3.4 g/dL (3.4-4.8); Alkaline Phosphatase 140 U/L (40-110); Anion Gap 13 mmol/L (10-20); BUN (Urea Nitrogen) 5 mg/dL (8.4-25.7); Bilirubin, Total 0.3 mg/dL (0.2-1.2); Calc. Creatinine Clearance 0 mL/min (70-130); Calcium 8.6 mg/dL (7.8-10.44); Carbon Dioxide 22 mmol/L (23-31); Chloride 96 mmol/L (98-107); Estimated GFR 104; Globulin 3.3 g/dL (2.4-3.5); Glucose 111 mg/dL (80-115); Potassium 4.4 mmol/L (3.5-5.1); Protein, Total 6.7 g/dL (5.8-8.1); Sodium 127 mmol/L (136-145)
[2023-05-31] MEDS ORDERED: VANCOMYCIN 1.25 GM/250 ML BAG 1.25 GM in Premix Bag 1 BAG IVPB SCH (14:15)
[2023-05-31] MEDS ORDERED: Ondansetron PF 4 MG/2 ML Vial IVP PRN (14:39)
[2023-05-31] MEDS ORDERED: HYDROcodone/Acetaminophen 5/325 mg Tablet PO PRN (14:39)
[2023-05-31] MEDS ORDERED: Acetaminophen 325 MG TAB PO PRN (14:39)
[2023-05-31] MEDS ORDERED: Multivit, Therapeutic 1 TAB PO SCH (15:00)
[2023-05-31] MEDS ORDERED: Folic Acid 1 MG TAB PO SCH (15:00)
[2023-05-31 15:22] LABS: Anion Gap 13 mmol/L (10-20); BUN (Urea Nitrogen) 5 mg/dL (8.4-25.7); Calc. Creatinine Clearance 0 mL/min (70-130); Calcium 8.5 mg/dL (7.8-10.44); Carbon Dioxide 22 mmol/L (23-31); Chloride 99 mmol/L (98-107); Estimated GFR 103; Glucose 114 mg/dL (80-115); Potassium 4.3 mmol/L (3.5-5.1); Sodium 130 mmol/L (136-145)
[2023-05-31 15:54] VITALS: BMI 21.9
[2023-05-31] MEDS: chlordiazePOXIDE HCl 5 MG CAP PO SCH ×2 (16:19→20:14)
[2023-05-31] MEDS: Atorvastatin Calcium 20 MG TAB PO SCH (20:14)
[2023-05-31] MEDS: Cefepime 1 GM in Sodium Chloride 0.9% 100 ML IVPB SCH (20:14)
[2023-05-31] MEDS: Tamsulosin HCl 0.4 MG CAP PO SCH (20:15)
[2023-05-31] MEDS: levETIRAcetam 500 MG TAB PO SCH (20:15)
[2023-05-31] MEDS: Sodium Chloride 1 GM TAB PO SCH (20:15)
[2023-05-31] MEDS: Vancomycin 1 GM in Premix Bag 1 BAG IVPB SCH (21:42)
[2023-06-01] MEDS: Vancomycin 1 GM in Premix Bag 1 BAG IVPB SCH ×2 (05:47→18:00)
[2023-06-01 06:49] LABS: Hemoglobin 10.8 g/dL (14.0-18.0); Red Blood Cell (RBC) Count 3.44 mill/uL (4.70-6.10); White Blood Cell (WBC) Count 9.4 10x3/uL (4.8-10.8)
[2023-06-01 06:50] LABS: #Basophils 0.1 thou/uL (0.0-0.2); #Eosinphils 0.1 thou/uL (0.0-0.7); #Monocytes 1.5 thou/uL (0.11-0.59); #Neutrophils 5.6 thou/uL (1.40-6.50); %Basophils 0.6 % (0.0-1.0); %Eosinophils 0.5 % (0.0-10.0); %Lymphocytes 23.1 % (21.0-51.0); %Monocytes 15.5 % (0.0-10.0); %Neutrophils 59.3 % (42.0-75.0); Hematocrit 31.1 % (42.0-52.0); Mean Corpuscular HGB CONC 34.7 g/dL (32.0-36.0); Mean Corpuscular Hemoglobin 31.4 pg (27.0-31.0); Mean Corpuscular Volume 90.4 fl (78.0-98.0); Mean Platelet Volume 9.4 fL (7.4-10.4); Platelet Count 334 10x3/uL (130-400); RBC Distribution Width 14.2 % (11.5-14.5)
[2023-06-01 07:19] LABS: Anion Gap 12 mmol/L (10-20); BUN (Urea Nitrogen) 4 mg/dL (8.4-25.7); Calc. Creatinine Clearance 132 mL/min (70-130); Calcium 8.7 mg/dL (7.8-10.44); Carbon Dioxide 22 mmol/L (23-31); Chloride 100 mmol/L (98-107); Estimated GFR 106; Glucose 89 mg/dL (80-115); Potassium 3.8 mmol/L (3.5-5.1); Sodium 130 mmol/L (136-145)
[2023-06-01] MEDS: Famotidine 20 MG TAB PO SCH (08:45)
[2023-06-01] MEDS: Thiamine 100 MG TAB PO SCH (08:45)
[2023-06-01] MEDS: Magnesium Oxide 400 MG TAB PO SCH (08:45)
[2023-06-01] MEDS: levETIRAcetam 500 MG TAB PO SCH ×2 (08:46→20:57)
[2023-06-01] MEDS: Multivit, Therapeutic 1 TAB PO SCH (08:46)
[2023-06-01] MEDS: chlordiazePOXIDE HCl 5 MG CAP PO SCH ×3 (08:46→20:58)
[2023-06-01] MEDS: Folic Acid 1 MG TAB PO SCH (08:46)
[2023-06-01] MEDS: Cefepime 1 GM in Sodium Chloride 0.9% 100 ML IVPB SCH (08:47)
[2023-06-01] MEDS: Aspirin 81 mg Enteric Coated Tablet PO SCH (08:47)
[2023-06-01] MEDS: Amlodipine 5 mg/Benazepril 10 mg CAP PO SCH (08:50)
[2023-06-01] MEDS: Sodium Chloride 1 GM TAB PO SCH ×2 (09:00→20:57)
[2023-06-01] MEDS ORDERED: Vancomycin 1 GM in Premix Bag 1 BAG IVPB SCH (12:45)
[2023-06-01 13:50] LABS: Vancomycin, Trough 17.3 ug/mL
[2023-06-01] MEDS: Tamsulosin HCl 0.4 MG CAP PO SCH (20:57)
[2023-06-01] MEDS: Atorvastatin Calcium 20 MG TAB PO SCH (20:57)
[2023-06-01] MEDS: Cefepime 2 GM in Sodium Chloride 0.9% 100 ML IVPB SCH (20:58)
[2023-06-01] MEDS ORDERED: Loratadine 10 MG TAB PO SCH (21:00)
[2023-06-02] MEDS: Vancomycin 1 GM in Premix Bag 1 BAG IVPB SCH (05:31)
[2023-06-02 06:54] LABS: #Basophils 0.1 thou/uL (0.0-0.2); #Monocytes 1.6 thou/uL (0.11-0.59); #Neutrophils 4.9 thou/uL (1.40-6.50); %Basophils 0.7 % (0.0-1.0); %Eosinophils 0.5 % (0.0-10.0); %Lymphocytes 20.3 % (21.0-51.0); %Monocytes 18.9 % (0.0-10.0); %Neutrophils 59.1 % (42.0-75.0); Hematocrit 29.6 % (42.0-52.0); Hemoglobin 10.1 g/dL (14.0-18.0); Mean Corpuscular HGB CONC 34.1 g/dL (32.0-36.0); Mean Corpuscular Hemoglobin 30.9 pg (27.0-31.0); Mean Corpuscular Volume 90.5 fl (78.0-98.0); Platelet Count 311 10x3/uL (130-400); RBC Distribution Width 14.1 % (11.5-14.5); Red Blood Cell (RBC) Count 3.27 mill/uL (4.70-6.10); White Blood Cell (WBC) Count 8.3 10x3/uL (4.8-10.8)
[2023-06-02 07:15] LABS: Anion Gap 10 mmol/L (10-20); BUN (Urea Nitrogen) 4 mg/dL (8.4-25.7); Calc. Creatinine Clearance 126 mL/min (70-130); Calcium 8.6 mg/dL (7.8-10.44); Carbon Dioxide 24 mmol/L (23-31); Chloride 97 mmol/L (98-107); Estimated GFR 105; Glucose 105 mg/dL (80-115); Potassium 3.6 mmol/L (3.5-5.1); Sodium 127 mmol/L (136-145)
[2023-06-02] MEDS: Amlodipine 5 mg/Benazepril 10 mg CAP PO SCH (08:39)
[2023-06-02] MEDS: Cefepime 2 GM in Sodium Chloride 0.9% 100 ML IVPB SCH (08:39)
[2023-06-02] MEDS: Thiamine 100 MG TAB PO SCH (08:40)
[2023-06-02] MEDS: Multivit, Therapeutic 1 TAB PO SCH (08:40)
[2023-06-02] MEDS: Sodium Chloride 1 GM TAB PO SCH (08:40)
[2023-06-02] MEDS: Folic Acid 1 MG TAB PO SCH (08:40)
[2023-06-02] MEDS: Magnesium Oxide 400 MG TAB PO SCH (08:40)
[2023-06-02] MEDS: Aspirin 81 mg Enteric Coated Tablet PO SCH (08:40)
[2023-06-02] MEDS: levETIRAcetam 500 MG TAB PO SCH (08:40)
[2023-06-02] MEDS: Famotidine 20 MG TAB PO SCH (08:40)
[2023-06-02] MEDS ORDERED: chlordiazePOXIDE HCl 5 MG CAP PO SCH (09:00)
[2023-06-02 11:55] VITALS: BP 121/66; TEMP 97.9
== END 2023-06-02 15:25 | disposition home health service (06) | DRG 603 ==
LOC: ERS 12:47 → T4-A 15:49
PROVIDERS: ADMIT Family Medicine; ATTEND Emergency Medicine
DX: L03.116 Cellulitis of left lower limb (principal); E87.1 Hypo-osmolality and hyponatremia; I10 Essential (primary) hypertension; E78.5 Hyperlipidemia, unspecified; G40.909 Epilepsy, unspecified, not intractable, without status epilepticus; N40.0 Benign prostatic hyperplasia without lower urinary tract symptoms; Z79.82 Long term (current) use of aspirin; Z79.899 Other long term (current) drug therapy; F10.20 Alcohol dependence, uncomplicated
CPT/HCPCS: 36415; 80048; 80053; 80202; 83605; 85025; 86140; 87040; 96365; 96367; 97139; J0692; J1650; J3370; J3370-JW; J3490

== ENCOUNTER 2025-09-18 12:15 | Outpatient (CLI) | payer MEDICARE, OTHER | END 2025-09-18 12:16 | disposition home or self-care (01) | LOC: BICMAMMO 12:15 | PROVIDERS: ATTEND Specialist | DX: S22.080A Wedge compression fracture of T11-T12 vertebra, initial encounter for closed fracture (principal); S32.010A Wedge compression fracture of first lumbar vertebra, initial encounter for closed fracture; M80.08XA Age-related osteoporosis with current pathological fracture, vertebra(e), initial encounter for fracture; M47.816 Spondylosis without myelopathy or radiculopathy, lumbar region; M47.814 Spondylosis without myelopathy or radiculopathy, thoracic region; M85.851 Other specified disorders of bone density and structure, right thigh; M85.852 Other specified disorders of bone density and structure, left thigh | CPT/HCPCS: 72146; 72148; 77080 ==